=== PATIENT | male | born 1950 | race Caucasian/White ===

== ENCOUNTER 2024-12-19 17:12 | Inpatient (IN) | payer MEDICARE, BC, SELFPAY ==
[2024-12-19] VITALS (22 sets, daily range): BP systolic 81–153; BP diastolic 45–116; BMI 31.4; BMI 31.5
--- NOTE | 2024-12-19 13:46 | ED.GENMED ---
History of Present Illness
General
Chief Complaint: Cardiac Symptoms
Source: patient
Exam Limitations: none
Time Seen by Provider: 12/19/24 13:31
History of Present Illness
History of Present Illness:
See MDM
Past History
Past History
ED Past Medical History: Hypercholesterolemia
ED Past Surgical History: None
Social History
Tobacco: Non-smoker
Alcohol: None
Phy Exam
Physical Exam
Physical Exam:
See MDM
Course
Orders/Labs/Results
Orders:
Orders
12/19/24 13:18
EKG [Electrocardiogram (*1)] Urgent
Reason for Study: Atrial Fibrillation
12/19/24 13:19
EKG- Treatment ONCE
12/19/24 13:43
Diltiazem 125 mg/125 ml Nss [Cardizem] 125 mg in 125 ml .ROUTE .STK-MED
Diltiazem HCl [Cardizem] 10 mg IV NOW STA
Diltiazem HCl [Cardizem] 25 mg .ROUTE .STK-MED ONE
12/19/24 13:48
Complete Blood Count/With Diff Urgent
Comprehensive Metabolic Panel Urgent
Magnesium Urgent
TSH Reflex To Free T4 Urgent
12/19/24 14:30
Metoprolol Xl [Toprol Xl] 25 mg PO NOW STA
12/19/24 15:42
Diltiazem 125 mg/125 ml Nss [Cardizem] 125 mg in 125 ml IV NOW
Initial dose in mg/hr, then titrate:: 5
Titrate to keep:: Heart rate 80-100 bpm
Titrate by mg/hr:: 5 mg/hr
Frequency of titrations (minutes):: 15
Maximum dose in mg/hr:: 15
12/19/24 15:43
Consult Cardiology [CARDIOLOGY CONSULT] Routine
Consulting Provider: Hullmann,Aditya
Was physician already notified: Yes
Abnormal Lab Results
12/19/24
13:48
RBC 4.10 L 10^6/uL
(4.70-6.10)
Hct 38.4 L %
(39.0-52.0)
MCH 32.2 H pg
(27.0-31.0)
Absolute Monos (auto) 0.8 H 10^3/uL
(0.1-0.6)
Chloride 109 H mmol/L
(98-107)
12/19/24 13:48
12/19/24 13:48
Vital Signs
Initial and Last Documented VS:
Initial Vital Signs
Temp Pulse Resp BP Pulse Ox
98.0 F 125 16 139/98 98
12/19/24 13:23 12/19/24 13:23 12/19/24 13:23 12/19/24 13:23 12/19/24 13:23
Last Documented Vital Signs
Temp Pulse Resp BP Pulse Ox
98.0 F 124 17 101/74 98
12/19/24 13:23 12/19/24 14:41 12/19/24 13:47 12/19/24 14:41 12/19/24 13:49
MDM/Problems Addressed
Differential Diagnosis Includes:
Note:
CHIEF COMPLAINT(S)
- Atrial fibrillation with a rapid heart rate.
HISTORY OF PRESENT ILLNESS
The patient is a 74-year-old male with no known history of hypertension or prior diagnosis of atrial fibrillation. He reports being asymptomatic with no chest pain, palpitations, or leg swelling. The patient describes a rapid heartbeat, confirmed to
be around 130 beats per minute, but mentions feeling well and without symptoms. During a routine visit at his PCP, the patient was found to have an irregular heart rhythm.
PHYSICAL EXAM
General: Alert, no acute distress.
Skin: Warm, dry.
Head: Normocephalic, atraumatic
Neck: Appears supple, trachea midline.
Eyes, Ears, Nose, Mouth, and Throat: Oral mucosa moist.
Cardiovascular: No signs of cyanosis. Tachycardic and irregular
Respiratory: Respirations are non-labored.
Abdomen: Non-distended
Musculoskeletal: No deformities. No leg edema
Neurological: No focal neurological deficit observed.
Psychiatric: Cooperative, appropriate mood and affect.
PLAN
1. Initiate blood work to assess for potential underlying causes such as hyperthyroidism or electrolyte imbalance.
2. Administer Cardizem (diltiazem) to slow the heart rate, with plans to evaluate the patients tolerance to potentially continue a pill version for home use.
3. Discuss referral back to the patients advanced practice rn, Dr. Harvey Hernandez, for further outpatient management and to explore options such as cardioversion or ablation as required.
4. Ensure the patient is aware of the need for anticoagulation therapy, as they are not yet on a blood thinner but may require it after further assessment and once a clot is ruled out.
5. Educate the patient on the nature of atrial fibrillation, possible interventions, and the need for a follow-up with the advanced practice rn for more comprehensive management.
DIFFERENTIAL DIAGNOSIS
The Differential Diagnosis includes, in no particular order and is not limited to:
1. Atrial Fibrillation
2. Hyperthyroidism
3. Electrolyte Imbalance
4. Heart Murmur
5. Anemia
6. Infection
7. Valvular Heart Disease
8. Pulmonary Embolism
9. Myocardial Infarction
10. Congestive Heart Failure
SUMMARY OF ENCOUNTER
The patient, a 74-year-old male, arrived at the emergency department with atrial fibrillation and a rapid heart rate persisting around 130 beats per minute. Given the persistent tachycardia, the patient was placed on a diltiazem (Cardizem) drip to
manage the elevated heart rate. Cardiology has been notified and will conduct further evaluation. The goal is to achieve spontaneous chemical cardioversion or proceed with synchronized cardioversion if necessary.
EMERGENCY TREATMENTS ADMINISTERED
Diltiazem drip was administered to manage the patients rapid heart rate.
MANAGEMENT OF THE PATIENTS CARE WAS DISCUSSED WITH
Cardiology has been contacted, and they are aware of the patients ongoing tachycardia. They will evaluate the patient with potential plans for cardioversion.
PLAN
The patient will be monitored with the hope of achieving spontaneous chemical cardioversion. If the heart rate does not stabilize, synchronized cardioversion is planned for the following day.
MEDICAL DECISION MAKING
-Complexity of Data Reviewed: Chronic conditions affecting care include the previously noted atrial fibrillation and spinal infection. Differential diagnosis includes atrial fibrillation, hyperthyroidism, electrolyte imbalance, heart murmur, anemia,
infection, valvular heart disease, pulmonary embolism, myocardial infarction, and congestive heart failure.
-Data:
Category 1
The patient was monitored through continuous heart rate and rhythm observation, which revealed persistent tachycardia in the 130s.
Category 3
Discussion of management with the advanced practice rn regarding potential for chemical or synchronized cardioversion.
DIAGNOSIS
1. Atrial Fibrillation, ICD-10 Code: I48.91
2. Tachycardia, unspecified, ICD-10 Code: R00.0
*Pulse Oximetry
SaO2: 98
Oxygen Mode of Delivery: Room air
Patient hypoxic: no
*Critical Care Note
Total Time (30-74mins, 75-104mins- exclusive of procedures): 33 min
comment:
The high probability of a clinically significant, sudden or life threatening deterioration of the cardiovascular system(s) required my full and direct attention, intervention and personal management. The aggregate critical care time was 33 minutes.
This time is in addition to time spent performing reported procedures but includes the following:
[x] Data Review and interpretation
[x] Patient assessment and monitoring of vital signs
[x] Documentation
[x] Medication orders and management
ED Attending Note
-
Portions of this chart may have been created with voice recognition software.� Occasional wrong word or��sound alike� substitutions may have occurred due to the inherent limitations of voice recognition software.
Discharge Plan
Departure
Patient Disposition: Admit
Date of Disposition: 12/19/24
Time of Disposition: 15:46
Admit to: Telemetry
Presentation/result/management discussed w/ accepting /: Hospitalist
Discharge Problem:
New onset a-fib
Prescriptions:
No Action
zinc 15 mg Tablet
15 mg PO DAILY
garlic 300 mg Capsule
600 mg PO DAILY
milk thistle 175 mg Tablet
175 mg PO DAILY
tamsulosin [Flomax] 0.4 mg Capsule
0.4 mg PO DAILY
niacin 500 mg Tablet
500 mg PO DAILY
coenzyme Q10 [CoQ-10] 100 mg Capsule
100 mg PO DAILY
vitamin D3-vitamin K2 25 mcg (1,000 unit)-90 mcg Tablet,Disintegrating
2 tab PO DAILY
cholecalciferol (vitamin D3) [Vitamin D3] 50 mcg (2,000 unit) Tablet
50 mcg PO DAILY
omega 4-pad-mkt-fish oil [Fish Oil] 1,000 mg (120 mg-180 mg) Capsule
1 cap PO DAILY
vitamin E (dl, acetate) 450 mg (1,000 unit) Capsule
450 mg PO DAILY
red yeast rice 600 mg Tablet
600 mg PO DAILY
potassium citrate 99 mg Capsule
99 mg PO DAILY
turmeric root extract 500 mg Tablet
500 mg PO DAILY
dextroamphetamine-amphetamine [Adderall] 20 mg Tablet
20 mg PO DAILY
berberine-herbal comb no.18 Capsule
1 cap PO DAILY
magnesium chelate, malate 125 mg magnesium Capsule
500 mg PO DAILY
ibuprofen 200 mg tablet
400 mg PO Q6HPRN PRN (Reason: moderate pain) Qty: 1 0RF
vitamin B complex Tablet
1 tab PO DAILY
tadalafil [Cialis] 5 mg Tablet
5 mg PO DAILY
Referrals:
Washington Rosen DO [Family Provider, Internal Medicine]
Interventions
Interventions:
*Risk Screen - Suicide Last Done: 12/19/24 13:23
*General Assessment Last Done: 12/19/24 13:49
*Neglect/Abuse Screening Last Done: 12/19/24 13:23
*ED- Fall Risk Assessment Last Done: 12/19/24 13:49
*ED COVID-19 Vaccine History Last Done: 12/19/24 13:49
ED- Pulmonary Assessment Last Done: 12/19/24 14:16
ED- Cardiac Assessment Last Done: 12/19/24 14:16
Discharge Date and Time
Print Language: MARTINIQUAIS
[2024-12-19] MEDS: CARDIZEM 10 MG IV (13:47)
[2024-12-19 13:57] LABS: Hematocrit 38.4 % (39.0-52.0); Hemoglobin 13.2 g/dL (13.0-18.0); Mean Corp Hgb Conc. 34.4 g/dL (33.0-37.0); Mean Corpuscular Volume 93.7 fL (80.0-94.0); Nucleated Red Blood Cells % 0 % (-); Platelet Count 256 10^3/uL (130-400); Red Cell Dist. Width 13.0 % (11.5-14.5)
[2024-12-19 14:12] LABS: ALT (SGPT) 16 U/L (0-50); AST (SGOT) 17 U/L (17-59); Albumin 3.9 g/dl (3.5-5.0); Alkaline Phosphatase 79 U/L (38-126); Blood Urea Nitrogen 17 mg/dl (9-20); Calcium 9.0 mg/dl (8.4-10.2); Carbon Dioxide 23 mmol/L (22-30); Chloride 109 mmol/L (98-107); Estimated Creatinine Clearance 86 ml/min; Glucose 98 mg/dl (70-99); Magnesium 1.9 mg/dl (1.6-2.3); Potassium 4.4 mmol/L (3.5-5.1); Sodium 137 mmol/L (135-145); Total Protein 6.3 g/dl (6.3-8.2); eGFR > 60.00
[2024-12-19] MEDS: TOPROL XL 25 MG PO (14:41)
--- NOTE | 2024-12-19 16:00 | HPS.HSE ---
Addendum entered and electronically signed by Janelle Mattson MD 12/19/24 18:01:
This is an addendum to H&P written by Sunshine Peterson on 12/19/2024. �Patient seen and examined independently with [employer].
74-year-old male past medical history of CAD, alcohol use disorder, osteoarthritis, hyperlipidemia, BPH, erectile dysfunction, discitis, ADD, smoker, presenting from primary care physician office for tachycardia noted by physician. �He was found to
be in new onset A-fib with heart rate 130. �Has been having fatigue and dyspnea with exertion. �No chest pain or palpitations.
Vital signs normal apart from tachycardia 130s. �EKG shows atrial fibrillation with RVR.
Patient with new onset atrial fibrillation with RVR.
Labs unremarkable apart from TSH of 6.6, free T4 1.03.�
Eliquis started. �Cardizem drip started. �N.p.o. past midnight for EDU/cardioversion if A-fib persist tomorrow as per cardiology. �Holding Adderall.
Subclinical hypothyroidism does not require treatment.�
Original Note:
Family Physician
-
Family Physician: Washington Rosen
Chief Complaint
-
A-fib with RVR from doctor's office
History of Present Illness
74-year-old male complaining of rapid heartbeat A-fib with heart rate 130 bpm during a routine visit at his PCP office. He was given IV Cardizem bolus in ER had slight hypotension.The patient denies fever, chills, chest pain, palpitations, cough,
abdominal pain, nausea and vomiting, diarrhea, urinary symptoms. He did report to cardiology that he felt possibly fatigued for the last several weeks. His noted to cardiology that he had dyspnea on exertion. He denies any recent infections,
URIs, fever. He drinks alcohol on the weekends however last drink was approximately December 07 2-3 beers he used to drink heavily on the weekends vodka and beer 3 years ago before he retired
He has past medical history of alcohol use disorder prior alcohol abuse 3 years ago, active smoker, HLD, BPH, erectile dysfunction, discitis lumbar debridement with long-term antibiotic therapy February 2022, ADD, obstructive circumflex disease by
PET scan 2022, osteoarthritis
Medical History
Past Medical History
Past Medical History: Reports Other
Additional Past Medical History:
Alcohol use disorder prior alcohol abuse 3 years ago
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
osteoarthritis
HLD
BPH
erectile dysfunction
discitis lumbar debridement with long-term antibiotic therapy February 2022
ADD
Active smoker
Past Surgical History: Reports Other
Additional Past Surgical History:
Spinal discitis lumbar debridement 03/06/2022
Tonsillectomy
[place] teeth extraction as teenager
Social History
Tobacco: Smoker (Smoker x 52 years currently half a pack a day max 2 pack a day 3 years ago)
Alcohol: Occasional (Drinks on the weekends 2-3 beers last drink was approximately December 07 occasional vodka)
Drug: None
Personal:
Living: With Family
Employment: Retired
Family History
Family History: Not pertinent
Allergies / Home Medications
Allergies reflects when Allergies were last updated in [facility].
Home Medications with original date entered in [facility]
Allergy/Medication List:
Allergies
Allergy/AdvReac Type Severity Reaction Status Date / Time
ciprofloxacin Allergy tendon Verified 12/19/24 13:25
rupture
Tetanus Vaccines and Toxoid Allergy Rash Verified 12/19/24 13:25
Home Medications
coenzyme Q10 100 mg capsule (CoQ-10) 100 mg PO DAILY 02/02/23
dextroamphetamine-amphetamine 20 mg tablet (Adderall) 20 mg PO DAILY 02/02/23
garlic 300 mg capsule 300 mg PO DAILY 02/02/23
potassium citrate 99 mg capsule 99 mg PO DAILY 02/02/23
red yeast rice 600 mg tablet 600 mg PO DAILY 02/02/23
tamsulosin 0.4 mg capsule (Flomax) 0.4 mg PO HS 02/02/23
turmeric root extract 500 mg tablet 500 mg PO DAILY 02/02/23
vitamin E (dl, acetate) 450 mg (1,000 unit) capsule 450 mg PO DAILY 02/02/23
ibuprofen 200 mg tablet 400 mg (2 x 200 mg) PO Q6HPRN PRN moderate pain #1 tab 02/06/23
aspirin 81 mg tablet,delayed release 162 mg PO DAILYPRN PRN chest pains 12/19/24
cholecalciferol (vit D3) 1,000 unit-vitamin K2 (MK4) 100 mcg tablet 1 tab PO DAILY 12/19/24
tadalafil 5 mg tablet (Cialis) 5 mg PO DAILY 12/19/24
vitamin B complex 1 tab PO DAILY 12/19/24
zinc sulfate 25 mg zinc (110 mg) tablet 25 mg PO DAILY 12/19/24
Review of Systems
-
History Source: Patient and Family ( at bedside)
A 12 point ROS was completed and negative except as noted: Yes
Constitutional: Denies Fever or Fatigue
EENT: Denies Sore Throat or Runny Nose
Respiratory: Denies Cough or Trouble Breathing
Cardiac: Denies Chest Pain, Diaphoresis, Palpitations or Syncope
Abdomen/GI: Denies Abdominal Pain, Nausea, Vomiting, Diarrhea, Constipated, Bloody Stools or Black Stools
: Denies Dysuria, Frequency, Flank Pain, Incontinence or Difficulty Voiding
Musculoskeletal: Denies Joint Pain or Edema
Skin: Denies Itching or Rash
Neurological: Denies Dizzy, Headache or Weakness
Endocrine: Reports No Symptoms
Hematologic/Lymphatic: Reports No Symptoms
Psych: Reports Calm
Physical Exam
Vital Signs
Vital Signs
Temp Pulse Resp BP Pulse Ox
98.0 F 108 17 114/89 96
12/19/24 13:23 12/19/24 15:45 12/19/24 15:30 12/19/24 15:40 12/19/24 15:45
Physical Exam
General: Comfortable and Conversant
HEENT: NormoCephalic, Anicteric, Moist mucous membranes, PERRLA, [place] Conjunctivae and No Ptosis; No Thyromegaly
Respiratory: Clear; No Wheezes, Rales or Rhonchi
Cardiac: S1/S2 and Irregular Rhythm (A-fib 111 bpm on monitor); No Murmur, Rub, Gallop or Peripheral Edema
Breast: Deferred by me
GI: Soft, Non Tender, Non Distended, Normal Bowel Sounds and No Hepatosplenomegaly
Rectal: Deferred by Provider
Genito-urinary: Deferred by me
Musculoskeletal: No Clubbing, No Cyanosis and No Edema
Skin: Warm and Dry; No Rash
Neuro: AO x 3, No Motor Deficits, Nonfocal/grossly intact and Cranial Nerves Intact; No Slurred Speech, Facial Droop, Tremors or Sedated
Psych: Calm
Laboratory Results
-
12/19/24 13:48
12/19/24 13:48
Laboratory Results
Total Bilirubin 0.6 mg/dl (0.2-1.3) 12/19/24 13:48
AST 17 U/L (17-59) 12/19/24 13:48
ALT 16 U/L (0-50) 12/19/24 13:48
Alkaline Phosphatase 79 U/L (38-126) 12/19/24 13:48
Data Reviewed
-
Lab Data: Labs Reviewed by me
Impression/Plan
-
Impression/plan:
Admit to IVU
#A-fib with RVR
HR 130s
IV Cardizem bolus then IV Cardizem drip
-Consult [facility] cardiology
-Check TSH with free T4 reflex
- Check n.p.o. after midnight for EDU/cardioversion in a.m. if remains in A-fib
- Eliquis 5 mg twice daily per cardiology
PET myocardial perfusion imaging: EF 58%, medium size perfusion defect with severe reduction of radioactive isotope intake inferior
lateral segment with moderate reversibility, medium sized area of ischemia in lateral wall extending from the basal segment into the
apical segment with almost complete reversibility, moderate segmental hypokinesis of lateral wall, myocardial flow reserve is
globally favorable 1.9 but segmentally abnormal in left circumflex territory
Echocardiogram 09/01/2022: Normal EF, thickened MV leaflets, mild MAC, mild MR, stage I diastolic dysfunction,
mild with peak/mean gradients 30/16 mmHg with MILE 2.27 cm�, mild TR
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
#History of stage I diastolic dysfunction/ mild MR
#History of alcohol use disorder
#Prior history of alcohol abuse patient reports 3 years ago used to drink heavily on the weekends
Last drink approximately December 07 2-3 beers has occasional alcohol last drink was 3 weeks ago at a friend's republic[employer]
#ADD
Hold Adderall in setting of A-fib with RVR
#Nicotine abuse
53-year smoking history current half a pack a day x 1 month as high as 2 pack a day 3 years ago
Cessation advised
-Nicotine patch 7 mg
#HLD
Check lipid profile
#BPH
Continue Flomax
#Erectile dysfunction
Last used of Cialis was yesterday 12/19/2019 5 AM
Other PMH:
discitis lumbar debridement with long-term antibiotic therapy February 2022,
DVT prophylaxis
Patient to start Eliquis
Full code
--- NOTE | 2024-12-19 16:09 | CON.CAR ---
Addendum entered and electronically signed by Aditya Mack MD 12/19/24 17:56:
I saw and examined the patient.
The Energy Administrator's note was reviewed and I agree with the note.
Comment: Briefly, 74-year-old man past medical history of presumed CAD and mild aortic stenosis who was evaluated by his primary care physician today and found to be tachycardic. ECG in the office showed atrial fibrillation with rapid ventricular
response and he was referred to [place] emergency department for further evaluation. Attempts were made to rate control his atrial fibrillation however he remained tachycardic and therefore was admitted for further management.
Patient tells me that he is unaware of the A-fib as he has not been experiencing any palpitations
He has been fatigued over the last several months however which may be due to AF
Not reporting any symptoms of decompensated heart failure�no dyspnea or peripheral edema
He was started on diltiazem drip and with a rate of 15 mg/hr rates are somewhat better controlled
New to Eliquis 5 mg twice daily and he seems agreeable to take this medication going forward for risk reduction of cardioembolic stroke
Would monitor on telemetry overnight
If he still remains in rapid atrial fibrillation in the morning we will arrange for EDU guided direct-current cardioversion to restore normal sinus rhythm
Discussed with ER physician and patient's at bedside
Original Note:
Consultation
Consultation Request
Date/Time Consultation Performed: 12/19/24
Requesting Provider: Dr. Sevilla
Performing Provider: Colleen Haas PA-C for Dr. Jose Mack
Reason for Consultation: A-fib
Medical History
-
Chief Complaint: New onset A-fib
History of Present Illness:
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 During visit was
noted to have elevated heart rate and underwent EKG which showed rapid atrial arrhythmia and patient was referred to the ER. He reports in retrospect, he has felt fatigued for last several weeks and his has also commented that he is short of
breath particularly with exertion. He denies any chest pain, palpitations, lower extremity edema, abdominal bloating. Denies known history of thyroid disease. Denies new supplements or medication changes, he is on Adderall as an outpatient for
his ADD. In ER he was given 10 mg IV Cardizem push and had drop in blood pressure to 90 systolic, but was asymptomatic. Patient to be admitted. Cardiology has been consulted for evaluation.
PMH:
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
Mild
Hyperlipidemia
ADD, on Adderall
Osteoarthritis
Ongoing tobacco use
Past Medical History
Past Medical History: Other (in HPI)
Social History
Tobacco: Smoker (1 ppd)
Alcohol: Occasional
Personal:
Living: With Family
Employment: Retired
Family History
Family History: Reviewed & Not Pertinent
Allergies / Home Medications
Allergy/AdvReac Type Severity Reaction Status Date / Time
ciprofloxacin Allergy tendon Verified 12/19/24 13:25
rupture
Tetanus Vaccines and Toxoid Allergy Rash Verified 12/19/24 13:25
�Medication �Instructions �Recorded �Confirmed �Type
berberine-herbal comb no.18 capsule 1 cap PO DAILY 02/02/23 12/19/24 History
cholecalciferol (vitamin D3) 50 50 mcg PO DAILY 02/02/23 12/19/24 History
mcg (2,000 unit) tablet (Vitamin
D3)
coenzyme Q10 100 mg capsule 100 mg PO DAILY 02/02/23 12/19/24 History
(CoQ-10)
dextroamphetamine-amphetamine 20 20 mg PO DAILY 02/02/23 12/19/24 History
mg tablet (Adderall)
garlic 300 mg capsule 600 mg PO DAILY 02/02/23 12/19/24 History
magnesium chelate, malate 500 mg PO DAILY 02/02/23 12/19/24 History
milk thistle 175 mg tablet 175 mg PO DAILY 02/02/23 12/19/24 History
niacin 500 mg tablet 500 mg PO DAILY 02/02/23 12/19/24 History
omega 3-lof-cka-fish oil 1,000 mg 1 cap PO DAILY 02/02/23 12/19/24 History
(120 mg-180 mg) capsule (Fish Oil)
potassium citrate 99 mg capsule 99 mg PO DAILY 02/02/23 12/19/24 History
red yeast rice 600 mg tablet 600 mg PO DAILY 02/02/23 12/19/24 History
tamsulosin 0.4 mg capsule (Flomax) 0.4 mg PO DAILY 02/02/23 12/19/24 History
turmeric root extract 500 mg tablet 500 mg PO DAILY 02/02/23 12/19/24 History
vitamin D3 25 mcg (1,000 unit)-vit 2 tab PO DAILY 02/02/23 12/19/24 History
K2 90 mcg disintegrating tablet
vitamin E (dl, acetate) 450 mg 450 mg PO DAILY 02/02/23 12/19/24 History
(1,000 unit) capsule
zinc 15 mg tablet 15 mg PO DAILY 02/02/23 12/19/24 History
ibuprofen 200 mg tablet 400 mg (2 x 200 mg) PO Q6HPRN PRN 02/06/23 12/19/24 Rx
moderate pain #1 tab
tadalafil 5 mg tablet (Cialis) 5 mg PO DAILY 12/19/24 12/19/24 History
vitamin B complex 1 tab PO DAILY 12/19/24 12/19/24 History
Review of Systems
-
History Source: Patient and Family
All other systems: Negative unless noted
Physical Exam
Vital Signs
Temp Pulse Resp BP Pulse Ox
98.0 F 108 17 114/89 96
12/19/24 13:23 12/19/24 15:45 12/19/24 15:30 12/19/24 15:40 09/04/25 15:45
Lab Results
12/19/24 13:48
12/19/24 13:48
Physical Exam
General: No Apparent Distress and Comfortable
HEENT: Normocephalic, Anicteric and Moist Mucous Membranes
Respiratory: Clear and Non Labored Respirations
Cardiac: S1/S2 and Irregular Rhythm
GI: Soft, Non Tender, Non Distended and Normal Bowel Sounds
Musculoskeletal: No Clubbing, No Cyanosis and No Edema
Skin: Warm and Dry
Neuro: AO x 3
Impression / Plan
-
Primary customer service trainer: Dr. Harvey Hernandez
Assessment:
Atrial fibrillation with rapid ventricular response, new diagnosis of unclear duration
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
Mild
Hyperlipidemia
History of PVCs
ADD, on Adderall
Osteoarthritis
Ongoing tobacco use
PET myocardial perfusion imaging: EF 58%, medium size perfusion defect with severe reduction of radioactive isotope intake in inferior lateral segment with moderate reversibility, medium sized area of ischemia in lateral wall extending from the
basal segment into the apical segment with almost complete reversibility, moderate segmental hypokinesis of lateral wall, myocardial flow reserve is globally favorable 1.9 but segmentally abnormal in left circumflex territory
Echocardiogram 09/01/2022: Normal EF, thickened MV leaflets, mild MAC, mild MR, stage I diastolic dysfunction, mild with peak/mean gradients 30/16 mmHg with MILE 2.27 cm�, mild TR
Plan:
- Patient presented with new diagnosis atrial fibrillation with rapid ventricular response discovered at routine office visit with primary care physician this morning and therefore referred to the ER for further evaluation
- Remains in A-fib with elevated heart rates at this time. Did receive one-time IV Cardizem push 10 mg with subsequent hypotension, patient asymptomatic. We discussed starting IV Cardizem gtt at 5 and will monitor response
- N.p.o. after midnight for EDU/cardioversion in a.m. if remains in A-fib. Procedure explained to patient and at bedside in detail and they are agreeable to proceed
- Last echo from 2022 as above with normal EF and mild , consider repeat
- [id number] score of 3 for age, vascular disease. We discussed anticoagulation. Patient has history of 'easy bruisability' on aspirin, however is agreeable to initiate anticoagulation with Eliquis
- TSH mildly abnormal at 6.6, free T4 pending
- Given history of suspected coronary disease based on results of PET scan and now new A-fib, would consider for outpatient ischemic evaluation. EKG without clear ischemic changes noted in rapid AF.
- Check CVE. He previously was not interested in statin therapy or BB therapy at prior OP visits.
- d/w patient and at bedside
Data Reviewed
-
EKG: Tracing Personally Visualized and interpreted
Medical Tests (Nuc Med, Echo etc): Report Reviewed by me
Labs: Labs Reviewed by me
Old Records: Reviewed
[2024-12-19] MEDS: CARDIZEM 125 IV (16:11)
[2024-12-19] MEDS: NICODERM TRANSDERMAL 7 MG TRANSDERM (18:23)
--- NOTE | 2024-12-19 18:24 | PTCARENOTE ---
pt admitted to room 2245 from ED. pt ambulated from stretcher to scale then to bed with standby assist. AAOX3. denies pain. A fib on telemetry heart rate low 100s- cardizem infusing at 15 mg/hr. pt and updated on plan of care.
[2024-12-19] MEDS: ELIQUIS 5 MG PO (19:47)
[2024-12-19] MEDS: FLOMAX 0.4 MG PO (22:21)
--- NOTE | 2024-12-20 00:24 | PTCARENOTE ---
received patient at the change of shift. AAOx3. spouse at the bedside. denies any pain. denies cp/sob/palps. appears dyspneic on exertion. Afib on tele 80-100s. lower rate this evening- 70s-80s. cardizem gtt titrated per order. bp stable. oob
standby. steady on his feet. NPO at midnight for a possible EDU/CV. answered all questions. call gould within reach. makes needs known.
[2024-12-20 03:34] VITALS: BP 126/72
[2024-12-20 03:44] VITALS: BMI 31.5
[2024-12-20 03:50] LABS: Hematocrit 36.7 % (39.0-52.0); Hemoglobin 12.7 g/dL (13.0-18.0); Mean Corp Hgb Conc. 34.6 g/dL (33.0-37.0); Mean Corpuscular Volume 96.3 fL (80.0-94.0); Nucleated Red Blood Cells % 0 % (-); Platelet Count 232 10^3/uL (130-400); Red Cell Dist. Width 13.0 % (11.5-14.5)
[2024-12-20 04:14] LABS: ALT (SGPT) 18 U/L (0-50); AST (SGOT) 18 U/L (17-59); Albumin 3.5 g/dl (3.5-5.0); Alkaline Phosphatase 74 U/L (38-126); Blood Urea Nitrogen 18 mg/dl (9-20); Calcium 9.0 mg/dl (8.4-10.2); Carbon Dioxide 25 mmol/L (22-30); Chloride 109 mmol/L (98-107); Estimated Creatinine Clearance 86 ml/min; Glucose 103 mg/dl (70-99); Potassium 4.5 mmol/L (3.5-5.1); Sodium 137 mmol/L (135-145); Total Protein 6.0 g/dl (6.3-8.2); Very Low Density Lipoprotein 12 mg/dl (0-30); eGFR > 60.00
[2024-12-20] MEDS: CARDIZEM 125 IV (04:18)
[2024-12-20 04:23] LABS: HDL Cholesterol 36 mg/dl; LDL Cholesterol, Calculated 136 mg/dl
--- NOTE | 2024-12-20 07:24 | W.PN.HOSP.TC ---
Today's Communication/Plan
-
See AP
Assessment / Plan
Assessment / Plan
74-year-old man who presented yesterday from his PCP/routine physical where he was found to be in A-fib/RVR.
He had no significant associated symptoms. However endorsed being palpitations and fatigue over the last few weeks.
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
HLD, Osteoarthritis, BPH, Erectile dysfunction, Discitis lumbar debridement with long-term antibiotic therapy February 2022
ADD, Active smoker, Alcohol use disorder prior alcohol abuse 3 years ago
#A-fib with RVR
Has had IV Cardizem bolus then IV Cardizem drip throughout the night
-Consult [facility]ology
-Check TSH with free T4 reflex
-Had EDU done today followed by DC cardioversion with 200J x1 to sinus rhythm
- Dabigatran 150 mg twice daily.
PET myocardial perfusion imaging: EF 58%,
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
#History of stage I diastolic dysfunction/ mild MR
#ADD
Hold Adderall in setting of A-fib with RVR
#Nicotine abuse
-Nicotine patch 7 mg
#HLD
LDL 136- Atorvastatin 20mg daily
#BPH
Continue Flomax
Anticipated Discharge: Today (A/P)
Subjective/Interval History
-
Date of Service: December 20, 2024
Patient seen
Has no current symptoms
Objective Data
-
Labs:
Laboratory Results
12/20/24
03:34
WBC 8.3
Hgb 12.7 L
Hct 36.7 L
Plt Count 232
Sodium 137
Potassium 4.5
Chloride 109 H
Carbon Dioxide 25
BUN 18
Creatinine 0.9
Glucose 103 H
Calcium 9.0
Total Bilirubin 0.4
AST 18
ALT 18
Alkaline Phosphatase 74
Vital Signs:
Vital Signs
Temp Pulse Resp BP Pulse Ox
98.6 F 70 18 126/72 95
12/20/24 03:43 12/20/24 05:15 12/20/24 03:43 12/20/24 03:34 12/20/24 03:43
I&O
12/19/24 12/20/24 12/21/24
06:59 06:59 06:59
Intake Total 480 / 480
Output Total 200 / 200
Balance 280 / 280
Review of Systems
-
History Source: Patient
Constitutional: Reports No Symptoms
EENT: Reports No Symptoms Reported
Respiratory: Reports No Symptoms
Cardiac: Denies Chest Pain, Diaphoresis, Syncope or Orthopnea
Abdomen/GI: Reports No Symptoms
Genitourinary: Reports No Symptoms
Musculoskeletal: Reports No Symptoms
Physical Exam
-
General: Well Developed, Well Nourished and No Apparent Distress
HEENT: Normocephalic
Respiratory: Clear to Auscultation and Wheezes (Faint wheeze heard on the left lower lung zones)
Cardiac: Regular Rhythm and S1/S2; Negative Murmur
GI: Soft and Nontender
[2024-12-20 07:32] VITALS: BP 87/55
[2024-12-20 07:33] VITALS: BP 95/59
[2024-12-20] MEDS: B COMPLEX w/VITAMIN C 1 CAPLET PO (07:58)
[2024-12-20] MEDS: ELIQUIS 5 MG PO (07:58)
--- NOTE | 2024-12-20 07:58 | W.PN.UPDATE ---
Addendum entered and electronically signed by Marcos Rodgers MD 12/20/24 13:10:
Unexpected rapid recovery.
Total time spent on d/c = 34 min. This included today's physical exam, progress note, review of laboratory and diagnostic data, preparation of discharge documents and prescriptions, and discussions about the pt's hospital course and discharge plan
with the patient and other medical recruiter involved in the patient's care.
Original Note:
Update Note
Progress Note Update
I saw and evaluated the patient. I reviewed the resident�s note and agree with findings and plan as documented in the resident�s note.
Gen: NAD, AAOx3.
Eyes: EOMI, PERRLA, no scleral icterus.
Neck: supple.
CV: irreg/irreg, +S1/S2, no m/r/g.
Resp: CTAB, no rales, wheezes, or rhonchi.
Abd: +BS, soft, NT, ND
Skin: No rashes.
Neuro: CN 2-12 intact, non-focal.
Psych: Normal mood and affect.
Afib with RVR:
-cont Cardizem gtt
-cont Eliquis
-cards following
-possible TEECV
Other problems:
h/o alcohol abuse disorder, now drinks socially
Tobacco abuse d/o: counseled on smoking cessation, cont nicotine patch
HLD
BPH
ADD: Holding home Adderall
Obesity due to excess calories
FULL/Eliquis
[2024-12-20] MEDS: NICODERM TRANSDERMAL 7 MG TRANSDERM (07:59)
--- NOTE | 2024-12-20 09:32 | W.PN.CARDCBS ---
Today's Communication / Plan
-
EDU/CV
Impression / Plan
-
Primary photolith operator: Dr. Harvey Hernandez
Assessment:
Atrial fibrillation with rapid ventricular response, new diagnosis of unclear duration
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
Mild
Hyperlipidemia
History of PVCs
ADD, on Adderall
Osteoarthritis
Ongoing tobacco use
PET myocardial perfusion imaging: EF 58%, medium size perfusion defect with severe reduction of radioactive isotope intake in inferior lateral segment with moderate reversibility, medium sized area of ischemia in lateral wall extending from the
basal segment into the apical segment with almost complete reversibility, moderate segmental hypokinesis of lateral wall, myocardial flow reserve is globally favorable 1.9 but segmentally abnormal in left circumflex territory
Echocardiogram 09/01/2022: Normal EF, thickened MV leaflets, mild MAC, mild MR, stage I diastolic dysfunction, mild with peak/mean gradients 30/16 mmHg with MILE 2.27 cm�, mild TR
Plan:
- Patient presented with new diagnosis atrial fibrillation with rapid ventricular response -
- S/p EDU today followed by DC caradioversion with 200J x1 to sinus rhythm
- Stop IV Cardizem
-Start Cardizem CD 120mg daily
- [id number] score of 3 for age, vascular disease. Continue Eliquis 5mg BID
- Outpatient sleep study
-TSH 6.6; free t4 normal- OP follow up advised
-Tobacco cessation; possible pulmonary evaluation as outpatient
-Given history of suspected coronary disease based on results of PET scan and now new A-fib, would consider for outpatient ischemic evaluation. EKG without clear ischemic changes noted in rapid AF.
- LDL 136- start Lipitor 20mg daily
- Probable D/C home later today
Progress Note - Rubber Goods Inspector Tester
Subjective
Date of Service: December 20, 2024
Seen and examined prior to EDU/CV. No new compplaints
Objective
Labs:
12/20/24 03:34
12/20/24 03:34
Labs
Hgb 12.7 g/dL (13.0-18.0) L 12/20/24 03:34
Hct 36.7 % (39.0-52.0) L 12/20/24 03:34
Plt Count 232 10^3/uL (130-400) 12/20/24 03:34
Sodium 137 mmol/L (135-145) 12/20/24 03:34
Potassium 4.5 mmol/L (3.5-5.1) 12/20/24 03:34
BUN 18 mg/dl (9-20) 12/20/24 03:34
Creatinine 0.9 mg/dL (0.7-1.3) 12/20/24 03:34
Glucose 103 mg/dl (70-99) H 12/20/24 03:34
Vital Signs and I&O:
Vital Signs
Temp Pulse Resp BP Pulse Ox
97.8 F 80 14 95/59 94
12/20/24 07:32 12/20/24 08:45 12/20/24 07:32 12/20/24 07:33 12/20/24 07:32
Vital Signs
Temp Pulse Resp BP Pulse Ox
97.8 F 80 14 95/59 94
12/20/24 07:32 12/20/24 08:45 12/20/24 07:32 12/20/24 07:33 12/20/24 07:32
Intake & Output
12/18/24 12/19/24 12/20/24 12/21/24
06:59 06:59 06:59 06:59
Intake Total 480 / 480
Output Total 200 / 200
Balance 280 / 280
Physical Exam
Physical Exam
General: No acute distress, AAOX3
Neck: Negative JVD
Heart: irregularly irregular +s1/s2 2/6 SM
Lungs: bronchovesicular BS with scattered rhnchi
Abd: Positive BS, NT/ND, neg rebound/rigidity/guarding
Ext: No edema
Neuro: nonfocal
[2024-12-20] MEDS: CARDIZEM CD 120 MG PO (11:37)
[2024-12-20 11:48] VITALS: BP 128/80
--- NOTE | 2024-12-20 12:46 | PTCARENOTE ---
patient post EDU cardioversion sinus rhythm on a monitor HR in the 60s. patient denies any pain/discomfort. regular diet order pplaced and noted. patient resting comfortably with the family at bedside
--- NOTE | 2024-12-20 12:47 | CM ---
spoke to pt in room, he is prev indep, lives with his in a 2 story home with 2 steps to enter. he denies any dc planning needs or dme's. plan is for dc to home when medically stable.
[2024-12-20 15:12] VITALS: BP 119/61
--- NOTE | 2024-12-20 15:53 | W.DCSUMMARY ---
Discharge Summary
Discharge Data
Date of Admission: 12/19/24
Date of Discharge: 12/20/24
-
Pending Results: No
Hospital Course
Discharging Physician : Glenny Roblero MD, Vishal Rodríguez MD
Disposition : Home
Primary care physician : David Resdavid
Principal Discharge diagnosis : Atrial fibrillation with rapid ventricular response
Hyperlipidemia
Attention deficit hyperactivity disorder
Chronic Discharge diagnosis :
Nicotine abuse
Benign prostatic hyperplasia
Erectile dysfunction
Osteoarthritis
Hospital Course :
74-year-old man who presented to the [facility] ED after being found to have an elevated heart rate/arrhythmias at his PCP office.
He had no significant associated symptoms of heart failure/decompensation. However endorsed being palpitations and fatigue over the last few weeks.
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
HLD, Osteoarthritis, BPH, Erectile dysfunction, Discitis lumbar debridement with long-term antibiotic therapy February 2022
ADD, Active smoker, Alcohol use disorder prior alcohol abuse 3 years ago
On presentation at the ED, he was in no obvious distress he was tachycardic to 125 bpm, irregularly irregular EKG done showed A-fib with RVR
He was given bolus Cardizem and then Cardizem drip. He was also started on oral dabigatran and atorvastatin.
He was admitted for observation and had EDU/cardioversion done the following day [12/20/2024] due to persistence of arrhythmias.
Following stable clinical condition he was discharged home on his oral medications.
He is to follow-up with his PCP for new diagnosis, subclinical hypothyroidism, and sleep study.
Important imaging findings :
PET myocardial perfusion imaging: (12/20/2024)
EF 58%, medium size perfusion defect with severe reduction of radioactive isotope intake in inferior lateral segment with moderate reversibility, medium sized area of ischemia in lateral wall extending from the basal segment into the apical segment
with almost complete reversibility, moderate segmental hypokinesis of lateral wall, myocardial flow reserve is globally favorable 1.9 but segmentally abnormal in left circumflex territory
Procedure findings :
Transesophageal echocardiography/cardioversion (12/20/2024)
Discharge Plan
-
Patient Disposition: Home (Routine Discharge)
Discharge Diagnosis/Procedures: atrial fibrillation, transesophageal echocardiogram / cardioversion
Hyperlipidemia
Condition: Good
Diet: Low Cholesterol
Activity: As tolerated
Driving Restrictions: As prior to admission
Referrals:
Washington Rosen DO [Family Provider, Internal Medicine] - in less than 1 week
Jody Rivera CRNP [Specified Professional Personl, Cardiology] - 01/21/25 8:00 am
Referral Note: You have a cardiology follow-up appointment at the [place] office with Dr. Hernandez's nurse practitioner, Jody. Please call with questions
Additional Discharge Medication Instructions: stop aspirin and NSAIDs as you are now on pradaxa!
Please follow up with cardiology on 01/21/25
Prescriptions:
New
atorvastatin 20 mg Tablet
20 mg PO QPM Qty: 30 0RF
diltiazem HCl 120 mg Capsule,Extended Release 24hr
120 mg PO DAILY Qty: 30 0RF
dabigatran etexilate 150 mg capsule
150 mg PO BID Qty: 60 11RF
Continued
garlic 300 mg Capsule
300 mg PO DAILY
tamsulosin [Flomax] 0.4 mg Capsule
0.4 mg PO HS
coenzyme Q10 [CoQ-10] 100 mg Capsule
100 mg PO DAILY
vitamin E (dl, acetate) 450 mg (1,000 unit) Capsule
450 mg PO DAILY
red yeast rice 600 mg Tablet
600 mg PO DAILY
potassium citrate 99 mg Capsule
99 mg PO DAILY
turmeric root extract 500 mg Tablet
500 mg PO DAILY
dextroamphetamine-amphetamine [Adderall] 20 mg Tablet
20 mg PO DAILY
vitamin B complex Tablet
1 tab PO DAILY
tadalafil [Cialis] 5 mg Tablet
5 mg PO DAILY
zinc sulfate 25 mg zinc (110 mg) Tablet
25 mg PO DAILY
vitamin D3-vitamin K2 (MK4) 1,000-100 unit-mcg Tablet
1 tab PO DAILY
Discontinued
ibuprofen 200 mg tablet
400 mg PO Q6HPRN PRN (Reason: moderate pain) Qty: 1 0RF
aspirin 81 mg Tablet,Delayed Release (Dr/Ec)
162 mg PO DAILYPRN PRN (Reason: chest pains)
Discharge Orders:
Discharge Patient (As Directed); Ordered 12/20/24
Ordered By: Marcos Rodgers
Care Plan Goals
Care Plan Goals:
Problem: Readiness for enhanced knowledge related to diagnosis and treatment plan
Goal: Understand your diagnosis and treatment plan needs, including medications if applicable.
Instructions: Know your diagnosis, underlying causes and treatment plan options, including medications if applicable. Consult with your health care team to learn about your diagnosis and treatment plan, including medications if applicable.
Discharge Date and Time
Discharge Date/Time: 12/20/24 15:41
Print Language: LITHUANIAN
--- NOTE | 2024-12-20 16:57 | CM ---
pt does not have perscript coverage for brand meds. proced eliquis- $490/mo- Xarelto- $488/mo and pradaxa is non-formulary. he has no deductible, that is his monthly copay chapa. looked up ggeneric pradaxa in [facility] rx at [facility] [address] near
the pts home and monthly cost with coupon is $66/mo, pt agreeable to this cost, coupon given. samantha Haas aware and sent script
--- NOTE | 2024-12-20 17:13 | ITS.CL.CARDI ---
Retail Security Professional - Cardioversion
Cardioversion
Procedure Report:
Date of Procedure: 12/20/24
Procedure: Cardioversion
Indication: Symptomatic atrial fibrillation
Performing Physician: Pricilla Giron DO [facility]
Anticoagulation: New Eliquis
Preprocedure transesophageal echocardiogram without left atrial appendage thrombus
Technique: The patient was brought to the holding area. Signed informed consent was obtained. A time out was called and performed. The patient was anesthetized by the anesthesia service. Transesophageal echocardiogram completed without
complication; no left atrial appendage thrombus. R2 pads were placed anteriorly and posteriorly. A 200 J synchronized biphasic shock restored normal sinus rhythm without significant bradycardia. There were no complications. Post procedure EKG
sinus rhythm with first-degree AV block and PACs, otherwise normal EKG.
Conclusion: Uncomplicated cardioversion from atrial fibrillation to sinus rhythm.
Recommendation: Routine post cardioversion care. Continue long filler cigar roller machine anticoagulation.
== END 2024-12-20 15:41 | disposition home or self-care (01) | DRG 310 ==
LOC: IVU 17:12
PROVIDERS: Clinical Nurse Specialist Family Health; Internal Medicine Cardiovascular Disease; ADMITTING PHYSICIAN Hospitalist; ATTENDING PHYSICIAN Internal Medicine; CONSULT PHYSICIAN Internal Medicine Cardiovascular Disease; EMERGENCY PHYSICIAN Student in an Organized Health Care Education/Training Program; FAMILY PHYSICIAN Internal Medicine
PROC: 5A2204Z Restoration of Cardiac Rhythm, Single (ICD-10-PCS; 2024-12-20)
PROC: B24BZZ4 Ultrasonography of Heart with Aorta, Transesophageal (ICD-10-PCS; 2024-12-20)
DX: I48.91 Unspecified atrial fibrillation (principal); E78.00 Pure hypercholesterolemia, unspecified; F90.9 Attention-deficit hyperactivity disorder, unspecified type; N52.9 Male erectile dysfunction, unspecified; M19.90 Unspecified osteoarthritis, unspecified site; E03.8 Other specified hypothyroidism; N40.0 Benign prostatic hyperplasia without lower urinary tract symptoms; F17.210 Nicotine dependence, cigarettes, uncomplicated; I25.10 Atherosclerotic heart disease of native coronary artery without angina pectoris; Z79.899 Other long term (current) drug therapy; F10.11 Alcohol abuse, in remission
CPT/HCPCS: 80053; 80061; 83735; 84439; 84443; 85025; 92960; 93005; 93312; 93320; 93325; 96365; 96366; 99291

== ENCOUNTER → 2025-02-11 11:22 | Outpatient (REF) | payer MEDICARE, BC, SELFPAY | LOC: DHSLP 11:22 | PROVIDERS: ATTENDING PHYSICIAN Nurse Practitioner; FAMILY PHYSICIAN Internal Medicine | DX: G47.33 Obstructive sleep apnea (adult) (pediatric) (principal) | CPT/HCPCS: 95800 ==

== ENCOUNTER 2025-03-18 06:06 | Day surgery (SDC) | payer MEDICARE, BC, SELFPAY ==
[2025-03-18] VITALS (15 sets, daily range): BP systolic 112–149; BP diastolic 68–105; BMI 32.1
[2025-03-18 07:24] LABS: Hematocrit 42.2 % (39.0-52.0); Hemoglobin 14.4 g/dL (13.0-18.0); Mean Corp Hgb Conc. 34.1 g/dL (33.0-37.0); Mean Corpuscular Volume 93.8 fL (80.0-94.0); Platelet Count 278 10^3/uL (130-400); Red Cell Dist. Width 13.2 % (11.5-14.5)
[2025-03-18] MEDS: LOW STRENGTH ASPIRIN 81 MG PO (07:36)
[2025-03-18 08:31] LABS: Blood Urea Nitrogen 15 mg/dl (9-20); Calcium 8.9 mg/dl (8.4-10.2); Carbon Dioxide 29 mmol/L (22-30); Chloride 106 mmol/L (98-107); Estimated Creatinine Clearance 75 ml/min; Glucose 101 mg/dl (70-99); Potassium 4.2 mmol/L (3.5-5.1); Sodium 137 mmol/L (135-145); eGFR > 60.00
[2025-03-18 08:43] LABS: ACT-LR - POC 205 Seconds (116-155)
[2025-03-18 08:54] LABS: ACT-LR - POC 215 Seconds (116-155)
--- NOTE | 2025-03-18 09:04 | ITS.CL.CATH ---
Wash Crew Person - Catheterization
Cardiac Catheterization
Procedure Report:
LEFT HEART CATHETERIZATION
Date of Procedure: March 18, 2025
Referring: Dr. Harvey Hernandez
PROCEDURES:
1. Left heart catheterization with coronary and single-plane left ventriculography
2. Hemodynamic assessment of the LAD with a Esperance Omni wire. The iFR in the LAD serially measuring below the ischemic threshold at 0.75, 0.80, 0.79, 0.79
INDICATION: Exertional intolerance. History of paroxysmal atrial fibrillation post cardioversion in December 2024. He is not on oral anticoagulation; he refuses.
ACCESS: Right radial artery, 6 Upper Sorbian sheath
HEMODYNAMICS : (mmHg)
AO (s/d) : 144/75
LV (s/d) : 163/13
LVEDP : 29
CORONARY FINDINGS
DOMINANCE: Left
LEFT MAIN: Mild ostial narrowing
LEFT ANTERIOR DESCENDING: The LAD arises normally from the left main and runs in the anterior interventricular groove. The LAD is a small to medium caliber vessel with a long 50% stenosis in its midportion spanning the origin of the first diagonal
branch which has a 70% ostial stenosis. The mid LAD has diffuse luminal irregularities to 40-50% but no focal obstructive stenosis. The iFR in the LAD measured well below the ischemic threshold at 0.75, 0.80, 0.79, and 0.79 with gradual step up in
the mid LAD and more significant step up near the origin of the diagonal branch.
CIRCUMFLEX: The circumflex is a moderate caliber dominant vessel with a 60% proximal stenosis. OM1 is very small. OM 2 is a moderate caliber vessel with ENMA II flow into the distal vessel associated with moderate ostial and mid atherosclerotic
disease. The circumflex continues in the AV groove supplying a moderate-sized posterolateral branch and small PDA. There is a long 60-70% calcified distal circumflex stenosis involving the posterolateral branch and proximal PDA
RIGHT CORONARY ARTERY: Moderate caliber nondominant vessel
VENTRICULOGRAPHY: Left ventriculography is performed in an CURIEL projection. The digital single-plane left ventricular ejection fraction is estimated at 50%
HEMODYNAMIC ASSESSMENT OF THE LAD WITH A VOLCANO OMNI WIRE: The origin of the left main was cannulated with a 6 Fr JL 4 guide catheter. The Omni wire was normalized to the guide catheter pressure while the guide was disengaged from the left main
ostium. Intravenous heparin was administered and the ACT was followed during the procedure. Two hundred micrograms of intracoronary nitroglycerin was given through the guide catheter. The Esperance Omni wire was advanced to the LAD and advanced
distally with the iFR serially measuring below the ischemic threshold at 0.75, 0.80, 0.79, 0.79. The Omni wire was then pulled back to the guide catheter where the Pd/Pa measured 0.98 confirming no baseline drift in pressure readings. The most
significant stepup in the LAD was noted near the diagonal origin
SEDATION: 55 minutes of procedural sedation was utilized. An independent medical safety director was present to assist with and help manage the patient's level of consciousness and physiologic status.
RADIATION SUMMARY: Fluoro Time (min): 11.4, Dose (mGy): 791, DAP (Gy.cm2) : 53.3
Closure Device: TR band
CONCLUSIONS
1. Multivessel coronary artery disease.
2. Low normal LVEF
RECOMMENDATIONS
1. Refer for CT surgical evaluation for possible coronary artery bypass grafting and ligation of left atrial appendage: Target vessels for revascularization would likely include the LAD, diagonal, OM2, PDA/PLB
Copy to: Dr. Harvey Hernandez
== END 2025-03-18 12:40 | disposition home or self-care (01) ==
LOC: CATH 06:06
PROVIDERS: ATTENDING PHYSICIAN Internal Medicine Interventional Cardiology; FAMILY PHYSICIAN Internal Medicine; OTHER PHYSICIAN Internal Medicine Cardiovascular Disease
DX: I25.10 Atherosclerotic heart disease of native coronary artery without angina pectoris (principal); Z79.899 Other long term (current) drug therapy; F90.9 Attention-deficit hyperactivity disorder, unspecified type; Z72.0 Tobacco use
CPT/HCPCS: 93799; 99152; 99153; 80048; 85027; 85347; 93458; C1769; Q9967

== ENCOUNTER → 2025-03-27 13:25 | Outpatient (REF) | payer MEDICARE, BC, OTHER, SELFPAY | LOC: HWRAD 13:25 | PROVIDERS: ATTENDING PHYSICIAN Student in an Organized Health Care Education/Training Program; FAMILY PHYSICIAN Internal Medicine | DX: I25.10 Atherosclerotic heart disease of native coronary artery without angina pectoris (principal) | CPT/HCPCS: 71250 ==

== ENCOUNTER 2025-04-01 05:16 | Inpatient (IN) | payer MEDICARE, BC, OTHER, SELFPAY ==
[2025-03-24 08:33] VITALS: BMI 33.2
[2025-03-24 09:14] LABS: Urine Character Clear (Clear)
[2025-03-24 09:17] LABS: Hematocrit 41.5 % (39.0-52.0); Hemoglobin 14.4 g/dL (13.0-18.0); Mean Corp Hgb Conc. 34.7 g/dL (33.0-37.0); Mean Corpuscular Volume 94.3 fL (80.0-94.0); Nucleated Red Blood Cells % 0 % (-); Platelet Count 279 10^3/uL (130-400); Red Cell Dist. Width 13.0 % (11.5-14.5)
[2025-03-24 09:26] LABS: INR 1.08; PT 14.1 Sec (11.4-14.6)
[2025-03-24 09:27] LABS: APTT 31.3 Sec (23.4-35.0)
[2025-03-24 09:58] LABS: ALT (SGPT) 16 U/L (0-50); AST (SGOT) 17 U/L (17-59); Albumin 3.9 g/dl (3.5-5.0); Alkaline Phosphatase 96 U/L (38-126); Blood Urea Nitrogen 17 mg/dl (9-20); Calcium 9.2 mg/dl (8.4-10.2); Carbon Dioxide 26 mmol/L (22-30); Chloride 105 mmol/L (98-107); Estimated Creatinine Clearance 81 ml/min; Glucose 97 mg/dl (70-99); Potassium 4.3 mmol/L (3.5-5.1); Sodium 138 mmol/L (135-145); Total Protein 6.5 g/dl (6.3-8.2); eGFR > 60.00
[2025-03-24 10:03] LABS: Glycohemoglobin (HgbA1c) 5.7 % (4.0-5.9)
--- NOTE | 2025-03-24 10:25 | CM ---
spoke to pt in PAT's. he is prev indep, lives with his in a 2 story home with 2 steps to enter. we discussed sternal and driving restrictions. he has the CT Surgery book, soap and instructions. he is agreeable to a f/u visit from the ct
transitional care nurse after dc. plan is for CABG 04/01, cm role explained and all questions answered.
[2025-04-01] VITALS (22 sets, daily range): BP systolic 83–136; BP diastolic 55–83; BMI 31.1
[2025-04-01] MEDS: MAGNESIUM OXIDE 400 MG PO (05:57)
[2025-04-01] MEDS: PROTONIX 40 MG PO (05:57)
[2025-04-01] MEDS: BACTROBAN 2% OINTMENT 1 APPLIC NASAL ×2 (05:57→20:32)
[2025-04-01] MEDS: LOPRESSOR 12.5 MG PO (06:15)
--- NOTE | 2025-04-01 06:25 | PTCARENOTE ---
Pt arrived to unit at 0500. Clipped and prepped per protocol, CHG bath w/wipes given. Admission questions completed, home meds confirmed. ABO sent. Ancef pulled and sent to the CVOR. CVOR at bedside at 0630, report given.
--- NOTE | 2025-04-01 06:45 | W.CVOR.SURPR ---
CVOR Surgeon Immed Pre Op
-
I have examined this patient prior to performance of the scheduled procedure.
The patient's condition is unchanged from the time of the dictated/written History and
Physical and the patient is able to undergo the scheduled procedure.
[2025-04-01 07:27] LABS: Urine Character Clear (Clear)
[2025-04-01 07:46] LABS: ACT+ - POC 140 Seconds (82-134)
[2025-04-01 09:51] LABS: ACT+ - POC 514 Seconds (82-134)
[2025-04-01 10:23] LABS: B.E. - POC 0.4 mmol/L; Glucose - POC 115 mg/dl (70-99); HCO3 - POC 26 mmol/L (21-28); Hematocrit - POC 35 % PCV (42-52); Hemodilution- POC No; Hemoglobin Calculated - POC 12.0; Ionized Calcium - POC 1.12 mmol/L (1.15-1.33); Lactate - POC 0.57 mmol/L (0.36-0.75); O2 Saturation %Calculated-POC 98.9 % (94-98); PCO2 - POC 43 mmHg (35-48); PO2 - POC 132 mmHg (83-108); Potassium - POC 3.9 mmol/L (3.5-5.1); Sodium - POC 141 mmol/L (136-145); Specimen Type - POC Arterial; pH - POC 7.39 (7.35-7.45)
--- NOTE | 2025-04-01 10:27 | CM ---
pt in OR today, cm to follow.
[2025-04-01 10:32] LABS: ACT+ - POC 479 Seconds (82-134)
[2025-04-01 11:03] LABS: B.E. - POC 4.1 mmol/L; Glucose - POC 159 mg/dl (70-99); HCO3 - POC 29 mmol/L (21-28); Hematocrit - POC 28 % PCV (42-52); Hemodilution- POC Yes; Hemoglobin Calculated - POC 9.5; Ionized Calcium - POC 1.12 mmol/L (1.15-1.33); Lactate - POC 0.70 mmol/L (0.36-0.75); O2 Saturation %Calculated-POC 100.0 % (94-98); PCO2 - POC 46 mmHg (35-48); PO2 - POC 393 mmHg (83-108); Potassium - POC 4.3 mmol/L (3.5-5.1); Sodium - POC 140 mmol/L (136-145); Specimen Type - POC Arterial; pH - POC 7.42 (7.35-7.45)
[2025-04-01 11:12] LABS: ACT+ - POC 440 Seconds (82-134)
[2025-04-01 11:45] LABS: B.E. - POC 3.0 mmol/L; Glucose - POC 195 mg/dl (70-99); HCO3 - POC 27 mmol/L (21-28); Hematocrit - POC 29 % PCV (42-52); Hemodilution- POC Yes; Hemoglobin Calculated - POC 9.8; Ionized Calcium - POC 1.05 mmol/L (1.15-1.33); Lactate - POC 0.94 mmol/L (0.36-0.75); O2 Saturation %Calculated-POC 100.0 % (94-98); PCO2 - POC 39 mmHg (35-48); PO2 - POC 409 mmHg (83-108); Potassium - POC 5.4 mmol/L (3.5-5.1); Sodium - POC 138 mmol/L (136-145); Specimen Type - POC Arterial; pH - POC 7.46 (7.35-7.45)
[2025-04-01 11:54] LABS: ACT+ - POC 452 Seconds (82-134)
[2025-04-01 12:17] LABS: B.E. - POC 1.9 mmol/L; Glucose - POC 212 mg/dl (70-99); HCO3 - POC 26 mmol/L (21-28); Hematocrit - POC 29 % PCV (42-52); Hemodilution- POC Yes; Hemoglobin Calculated - POC 10.0; Ionized Calcium - POC 1.10 mmol/L (1.15-1.33); Lactate - POC 1.13 mmol/L (0.36-0.75); O2 Saturation %Calculated-POC 99.9 % (94-98); PCO2 - POC 35 mmHg (35-48); PO2 - POC 273 mmHg (83-108); Potassium - POC 5.0 mmol/L (3.5-5.1); Sodium - POC 138 mmol/L (136-145); Specimen Type - POC Arterial; pH - POC 7.47 (7.35-7.45)
[2025-04-01 12:47] LABS: ACT+ - POC 109 Seconds (82-134)
[2025-04-01 13:34] LABS: B.E. - POC -1.5 mmol/L; Glucose - POC 143 mg/dl (70-99); HCO3 - POC 24 mmol/L (21-28); Hematocrit - POC 29 % PCV (42-52); Hemodilution- POC Yes; Hemoglobin Calculated - POC 9.9; Ionized Calcium - POC 1.26 mmol/L (1.15-1.33); Lactate - POC 2.63 mmol/L (0.36-0.75); O2 Saturation %Calculated-POC 99.8 % (94-98); PCO2 - POC 42 mmHg (35-48); PO2 - POC 237 mmHg (83-108); Potassium - POC 3.8 mmol/L (3.5-5.1); Sodium - POC 142 mmol/L (136-145); Specimen Type - POC Arterial; pH - POC 7.37 (7.35-7.45)
[2025-04-01 14:09] LABS: Glucose - Point of Care 111 mg/dl (70-99)
[2025-04-01 14:19] LABS: B.E. -1.8 mmol/L; HCO3 24.7 mmol/L (21-28); O2 Saturation % 99.1 % (94-98); PCO2 49 mmHg (35-48); PO2 107 mmHg (83-108); Potassium 3.9 mMOL/L (3.5-5.1); Sodium 137 mMOL/L (136-145)
[2025-04-01 14:22] LABS: Hematocrit 29.7 % (39.0-52.0); Hemoglobin 10.3 g/dL (13.0-18.0); Platelet Count 186 10^3/uL (130-400)
[2025-04-01 14:35] LABS: Blood Urea Nitrogen 15 mg/dl (9-20); Estimated Creatinine Clearance 92 ml/min; Glucose 103 mg/dl (70-99); Magnesium 2.6 mg/dl (1.6-2.3)
--- NOTE | 2025-04-01 14:35 | W.PN.UPDATE ---
Update Note
Progress Note Update
75�year old male was electively admitted for CABG, MAZE, left atrial clip due to two�vessel�coronary diseaseand PAF
IV fluids:
Crystalloid:�
U.O.:�
Blood:�
Wires:� V wire
Drips: Levo @ 6, Precedex, Insulin
�
NEURO: sedated, pupils +2mm B/L
RESP: #8OT @24cm> 500/60%/14/5. Lungs clear B/L. 2 mediastinal (5cc on arrival) and R/L pleural (20cc on arrival) chest tubes to -20cm suction. Sanguineous drainage
CV: RRR +S1, S2, no S3, no�rub, no murmur. Dermabond to median sternotomy. RIJ w/Slik, CVP 6
ABD: round, soft, no BS
EXT: no edema, +2/4 DP pulses B/L, no femoral bruit, RLE LEVI wrap intact; left radial A-line intact
: Dean with clear yellow urine
�
A/P: POD #0 s/p CABG x 4 FRAZIER-LAD, SVG-Diag, SVG-OM & LPL, encompass MAZE, ELAA # 40mm clip
EDU: EF�60-65%
- wean and extubate
- insulin x 24h
# CAD
- will require ASA, Plavix, statin, beta ze
# PAF not on AC
- currently SR
�
# acute surgical blood loss anemia-expected
- trend CBC
�
�# Class I obesity (BMI 31)
�- chol lowering diet
# Tobacco abuse (quit Mar 2025)
- offer Nicotine patch
# BPH
- resume Flomax/Cialis as BP permits
[2025-04-01] MEDS: ANCEF 10 IV ×2 (14:37→14:38)
[2025-04-01] MEDS: NEURONTIN PO ×2 (14:38→15:15)
[2025-04-01] MEDS: NSS 500 IV (14:38)
[2025-04-01] MEDS: TYLENOL PO (14:38)
[2025-04-01 14:41] LABS: INR 1.45; PT 17.7 Sec (11.4-14.6)
[2025-04-01 14:42] LABS: APTT 30.3 Sec (23.4-35.0)
--- NOTE | 2025-04-01 14:50 | PTCARENOTE ---
pt received from CVOR @~1400, sedated on Precedex gtt, RASS -5. core temp 97.3, bear hugger applied. SR w/ 1st degree AVB on the monitor, HR 70s. V wires in place, VVI 40/10. CVP ~6. SBP 90-110, Levophed gtt running as ordered. palpable radial
pulses, weakly palpable DPs. pt mechanically ventilated, ETT #8.0, 24cm@lip. SIMV 14, TV 500, PEEP 5, FIO2 40%. POX 97-100%. lungs clear anteriorly. CTx3, no air leak or crepitus noted. pt abdomen round, s/n, hypoactive BS. Dean in place, slight
hematuria otherwise clear yellow urine, FRONT END LOADER OPERATOR aware. 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 chest tube site c/d/i. R groin puncture. RLE LEVI bandage in place. RIJ cordis/slick in place. R radial Helen flushed, zeroed, and calibrated. PIV x2. insulin gtt
running per protocol. lab work drawn, RR increased on vent per FRONT END LOADER OPERATOR based on ABG. EKG completed. CXR completed. dora repleted. see worklist for VS, I&O, and assessment.
[2025-04-01] MEDS: CALCIUM GLUCONATE 100 IV ×2 (15:03→20:39)
[2025-04-01 15:04] LABS: Glucose - Point of Care 123 mg/dl (70-99)
[2025-04-01] MEDS: PACERONE PO (15:15)
[2025-04-01] MEDS: KCL 50 IV (15:59)
[2025-04-01 16:04] LABS: Glucose - Point of Care 102 mg/dl (70-99)
--- NOTE | 2025-04-01 16:40 | CON.INTV ---
Consultation
Consultation Request
Date/Time Consultation Requested: 04/01/2025
Date/Time Consultation Performed: 04/01/2025
Medical History
-
Chief Complaint: Exertional dyspnea
History of Present Illness:
Patient is a 75-year-old gentleman who was diagnosed with atrial fibrillation requiring brief hospitalization in 12/2024. Patient since has been having worsening exertional dyspnea and fatigue. Longstanding history of smoking. His workup included
recent cardiac catheterization which showed multivessel coronary artery disease and patient was recommended to follow-up with the cardiothoracic surgery service. Patient was recommended to have coronary artery bypass graft, maze procedure and left
atrial appendage exclusion. He was electively admitted to hospital on 04/01 for above procedure and post surgery was admitted to CVICU. Blood Donor Recruiter Supervisor consultation was requested for further input.
Past Medical History
Alcohol use disorder prior alcohol abuse 3 years ago
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
osteoarthritis
HLD
BPH
erectile dysfunction
discitis lumbar debridement with long-term antibiotic therapy February 2022
ADD
Past Surgical History: Reports Other
Additional Past Surgical History:
Spinal discitis lumbar debridement 03/06/2022
Tonsillectomy
[place] teeth extraction as teenager
Social History
Tobacco: Smoker (Smoker x 52 years currently half a pack a day max 2 pack a day 3 years ago)
Alcohol: Occasional (Drinks on the weekends 2-3 beers last drink was approximately December 07 occasional vodka)
Drug: None
Personal:
Living: With Family
Employment: Retired
Family History
Family History: Not pertinent
Allergies / Home Medications
Allergies
Allergy/AdvReac Type Severity Reaction Status Date / Time
ciprofloxacin Allergy tendon Verified 03/20/25 16:22
rupture
Tetanus Vaccines and Toxoid Allergy Rash Verified 03/20/25 16:22
Home Medications
�Medication �Instructions �Recorded �Confirmed �Last Taken �Type
coenzyme Q10 100 mg capsule 100 mg PO DAILY Supplement 10/19/23 12/16/25 12/10/25 08:00 History
(CoQ-10)
garlic 300 mg capsule 300 mg PO DAILY Supplement 02/02/23 04/01/25 03/26/25 08:00 History
potassium citrate 99 mg capsule 99 mg PO DAILY Supplement 02/02/23 04/01/25 03/26/25 08:00 History
tamsulosin 0.4 mg capsule (Flomax) 0.4 mg PO HS Urinary Issue 02/02/23 04/01/25 03/31/25 23:00 History
vitamin E (dl, acetate) 450 mg 450 mg PO DAILY Supplement 02/02/23 04/01/25 03/26/25 08:00 History
(1,000 unit) capsule
tadalafil 5 mg tablet (Cialis) 5 mg PO DAILY Urinary Issue 12/19/24 04/01/25 03/30/25 History
2200
vitamin B complex 1 tab PO DAILY Supplement 12/19/24 04/01/25 03/26/25 08:00 History
zinc sulfate 25 mg zinc (110 mg) 50 mg PO DAILY Supplement 12/19/24 04/01/25 03/26/25 08:00 History
tablet
aspirin 81 mg tablet 81 mg PO DAILY Blood Clot 03/18/25 04/01/25 03/31/25 18:30 History
Prevention/Tx 81
Nicotine Transdermal 21 mg topical DAILY Nicotine 03/20/25 04/01/25 03/30/25 08:00 History
replacement tx
atorvastatin 20 mg tablet 20 mg PO QPM High Cholesterol 03/20/25 04/01/25 03/30/25 History
2300
cholecalciferol (vitamin D3) 50 100 mcg PO DAILY Supplement 03/20/25 04/01/25 03/26/25 08:00 History
mcg (2,000 unit) tablet (Vitamin
D3)
vitamin K2 180 mcg capsule 180 mcg PO DAILY Supplement 03/20/25 04/01/25 03/26/25 08:00 History
Review of Systems
-
Unable to Obtain full review of systems at this time due to: Patient Intubation
Vitals / Labs / Diagnostic Testing
Vital Signs
Temp Pulse Resp BP Pulse Ox
98.1 F 75 18 105/70 99
04/01/25 16:00 04/01/25 16:00 04/01/25 16:00 04/01/25 16:00 04/01/25 16:00
Lab Data
04/01/25 14:07
04/01/25 14:07
Laboratory Results
04/01/25
14:07
PT 17.7 H
INR 1.45
APTT 30.3
pH 7.31 L
pCO2 49 H
pO2 107
HCO3 24.7
O2 Delivery Level
Diagnostic Testing:
Physical Exam
-
HEENT: Normocephalic
Cardiovascular: S1/S2
Respiratory: Clear
GI: Soft
Neurology: Awake and Other (Sedated)
Skin: Warm
General: Comfortable
Assessment
-
75-year-old gentleman with multivessel coronary artery disease, s/p coronary artery bypass graft, maze procedure and left atrial appendage exclusion, POD # 0
Titrate off pressors per protocol, currently Levophed infusing at 3, MAP of 72.
ECHO reviewed with normal LVEF
Management of chest tubes per primary service, no airleak noted
Intubated/sedated, initiate SAT when able. Precedex infusing at 0.4
Pain control
RASS goal of 0 to -1
Intubated for procedure, SBT trial when patient able to spontaneously breath
Current vent settings: SIMV, 500/18/40%/5, with pressure support of 5
AB.31/49/107
CXR with no obvious opacities/infiltrates
Extubate per protocol
Maintain supplement oxygen as needed
No prior known history of pulmonary disease
Can add nebulizers if needed
Aspiration precautions
Encouraged incentive spirometry, OOB/ambulation/early mobility
Advance diet as tolerated following extubation
GI prophylaxis: Protonix
Monitor critical I/O's. Urine slightly blood-tinged, progressively clearing.
Dean/chest tube output
Hb/platelets postoperatively, mild drift
Trend CBC for now
Can transfuse if indicated for Hb <7, plt <50 in surgical patients
DVT prophylaxis including SCDs
Insulin protocol initiated and ongoing
Transition to SQ/off as indicated per team
Other medical diagnoses:
- Paroxysmal atrial fibrillation
- History of smoking
- BPH
- History of smoking, will get additional details once patient is extubated
Critical Care time 61 mins -- The patient is admitted for acute critical illness for the treatment of vital organ failure and/or prevention of further life-threatening conditions. Total care includes time spent in review of history, physical exam,
medications, hemodynamic/ventilator parameters, laboratory data, imaging and discussion with house staff, pharmacy, respiratory therapy, decorating inspector, and nursing
Data:
EDU 03/2025: Normal size left ventricle with concentric hypertrophy. No regional wall motion abnormalities with LVEF 60-65%.
Normal right ventricular size and function. Dilated tricuspid valve with trace to mild regurgitation.
Mildly dilated right atrium. Normal left atrial appendage.
Functionally normal aortic valve. Mild mitral regurgitation.
Normal size aorta with grade III atheromatous disease of the lesser curvature of the aortic arch.
C 03/2025: 1. Multivessel coronary artery disease.
2. Low normal LVEF
CT Chest 03/2025: No acute CT findings in the chest
Moderate coronary arterial calcifications
Diffuse idiopathic skeletal hyperostosis of mid to lower thoracic spine
--- NOTE | 2025-04-01 16:45 | PTCARENOTE ---
pt nods appropriately, BLAIR, follows commands. pt placed on CPAP 5/5 40% @~1640. POX 100%. oral hygiene provided.
[2025-04-01 17:14] LABS: B.E. - POC 1.1 mmol/L; Blood Urea Nitrogen - POC 15 mg/dl (3-120); Chloride - POC 107 mmol/L (96-111); Creatinine - POC 0.98 mg/dl (0.3-1.0); Glucose - POC 133 mg/dl (70-99); HCO3 - POC 26 mmol/L (21-28); Hematocrit - POC 31 % PCV (42-52); Hemodilution- POC No; Hemoglobin Calculated - POC 10.6; Ionized Calcium - POC 1.30 mmol/L (1.15-1.33); Lactate - POC 1.28 mmol/L (0.36-0.75); O2 Saturation %Calculated-POC 98.8 % (94-98); PCO2 - POC 42 mmHg (35-48); PO2 - POC 123 mmHg (83-108); Potassium - POC 4.9 mmol/L (3.5-5.1); Sodium - POC 135 mmol/L (136-145); Specimen Type - POC Arterial; pH - POC 7.40 (7.35-7.45)
[2025-04-01 17:19] LABS: Glucose - Point of Care 133 mg/dl (70-99)
--- NOTE | 2025-04-01 17:19 | W.PN.CT.SURG ---
CT Surgery Operative Note
-
CARDIAC SURGERY OPERATIVE REPORT
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
Postoperative Diagnosis: Same
Procedure(s) Performed:
1. Standard Sternotomy with Aortic and Right Atrial Cannulation
2. Internal Mammary Artery Harvesting, Left
3. Coronary artery bypass grafting x 4 (In situ FRAZIER to LAD, Ao to RSVG to diagonal, Ao to RSVG to L PLB and OM 2 in sequence)
4. Endarterectomy of second obtuse marginal coronary artery
5. Endoscopic vein harvesting of right saphenous vein
5. Transesophageal echocardiography
6. Placement of Temporary Ventricular Pacing Wires
7. Left atrial appendage ligation with 40 mm AtriClip
8. Modified left atrial maze procedure with AtriCure Encompass device
Date of Surgery: 04/01/2025
Comorbidities:
1. Paroxysmal A-fib
2. Hypertension
3. Hyperlipidemia
4. Tobacco use
Attending Surgeon: Shavonne Quinteros MD, MPH
Co-surgeon: Frankie Arredondo MD, MS (assisted in the endarterectomy of second obtuse marginal coronary artery)
Assistants: Frankie Grullon PA-C and CANDACE Mckinnon (present and necessary to yard assistant, endoscopic vein harvest, retraction, suction, exposure, suture management, and wound closure under my direction)
Anesthesiology: Jeremy Sharp MD and Chandler Wills CRNA
Scrub and Circulating RNs: Tawanna Pittman, RN, Marshall Bearden RN
Park Services Specialist: Huong Hicks CCP
Anesthesia: GETA
EBL: per perfusion records
Products: None
CPB Time: 136 minutes
Aortic Cross Clamp Time: 102 minutes
Indication(s) for Procedures: Mr. Watson is a 75-year-old man with hypertension, hyperlipidemia and new onset paroxysmal A-fib s/p cardioversion who presented for evaluation of escalating angina with left heart cath showing multivessel coronary artery
disease.
Conduit(s) Quality:
FRAZIER -great quality with excellent flow
RSVG -slightly thick, however overall was of great quality without significant sclerosis or varicosities
Target(s) Quality:
L PLB -this was moderate-sized vessel with a good lumen and free of disease in the area of arteriotomy. Flow on bypass indicates 30 cc/min at 80 mmHg, after sequential flow probe indicates 50 cc/min with PI 4.3
OM2 -this was clearly the largest of the branches on the lateral wall, when arteriotomy was performed we were clearly in a large plaque. We did have to perform a rather large endarterectomy to remove the plaque. There was easy passage of 2 mm
probe proximally and 1 mm probe distally. Flow on bypass indicates 30 cc/min at 80 mmHg, after sequential the flow probe indicates 50 cc/min with PI 4.3.
Diagonal -this is a large vessel with a very good lumen, free of disease. Flow while on bypass was 20 cc/min at 80 mmHg. Flow probe indicates 25.5 cc/min with PI 3.4
LAD -this was a moderate-sized vessel with excellent target and wide open lumen free of disease. Flow probe indicates 30 cc/min with PI 2.5
Findings: Intraoperative EDU was performed indicating normal LV with moderate hypertrophy and no RWMA, EF 60 to 65%. There was normal RV function and mild MR with trace to mild TR. At the conclusion of the case there were no significant changes
with EF at baseline and no new RWMA or valvular abnormalities. The FRAZIER was harvested in a skeletonized fashion. The arteriotomy performed on OM 2 led us to a large occlusive plaque requiring endarterectomy, which were able to do carefully without
significant damage to the paimiut arterial wall. Following endarterectomy we were able to probe the lumen both distally and proximally indicating both ends were open. Following bypass grafting, test dose cardioplegia was given down each distal and
confirmed patency and hemostasis. Each distal was probed both proximally and distally to confirm disease and patency, respectively. After coming off bypass we tested our right pulmonary vein and left atrium through external pacing to verify
completeness of our ablation lesion, this was done with satisfactory result.
Description of Procedure: The patient was taken to the operating room. Their identity and procedure to be performed were verified and they were positioned supine on the operating table. Induction via general anesthesia with endotracheal intubation
was performed and central venous access and arterial monitoring were inserted. A preoperative transesophageal echocardiogram was performed to assess cardiac function and valvular function. The patient was then prepped and draped from chin to feet in
a sterile fashion. A preoperative time-out was performed with all members of the team present. A midline chest incision was performed along with median sternotomy. Simultaneous endoscopic access of the right lower extremity for saphenous vein
harvest was obtained along with administration of an initial 5,000 units of IV heparin. A RulTract sternal retractor was positioned to exposure the left internal mammary bed. The mammary was harvested and found to have good flow. A medium clip was
applied to the distal end of the mammary after dividing it. It was wrapped in a papaverine soaked RayTec and replaced back into the left hemithorax. The RulTract was exchanged for a median sternal retractor. Full heparinization was given (a total of
45,000 units). We created a pericardial well. The aortic cannulation site was chosen where it was soft, pliable, and free of calcium. Cannulation was performed with an arterial cannula in the ascending aorta and a triple-stage venous cannula through
the right atrial appendage. The arterial cannula line had an appropriate bounce and correlating pressures with test dosing. Next, a root vent/antegrade cannula was inserted into the ascending aorta. The ACT was confirmed to be over 400 and
retrograde autologous priming was performed before commencing cardiopulmonary bypass. We then proceeded to dissect out the oblique sinus and separate the SVC from right pulmonary artery to create connection and passage through transverse sinus. The
red rubber for the AtriCure Encompass device was passed under the SVC through the transverse sinus behind the left atrium and around the apex of the heart, then passed through the oblique sinus. The encompass device was then attached to the magnetic
ends and carefully passed behind the heart to the oblique and transverse sinuses to fully surround the pulmonary veins. The device was clamped and we satisfactorily burned 3 times releasing and reclamping in between each burn to complete the
modified maze with pulmonary vein isolation and posterior box lesion. Next the pulmonary artery was away from the aorta to facilitate a clamp site. The aortic cross-clamp was placed after decreasing the flow on the bypass and mean
arterial pressure. A total of 1.2L initial dose of antegrade Del-Nido cardioplegia solution was given and planned for re-dosing every 75 minutes as necessary. There was rapid electro-mechanical arrest of the heart at 400 cc of cardioplegia. The left
ventricle was observed for distention on echocardiogram and manual palpation. Cold slush was placed into a sponge and topically on the RV while we systemically cooled to 34 degrees centigrade.
After the completion of antegrade cardioplegia, while the heart was nice and empty, we proceeded to expose the left atrial appendage and placed a 40 mm AtriClip across the base of the left atrial appendage. I positioned the heart to expose the
posterior wall of the heart where we are able to identify the left PLB. A otoe-missouria blade was used to expose the coronary and perform the arteriotomy. Coronary Holt scissors were used to enlarge the incision. The saphenous vein was trimmed and beveled
to an appropriate size. The distal anastomosis was performed using 7-0 prolene in an end-to-side fashion. Antegrade cardioplegia was administered into the graft. Appropriate hemostasis and flow were confirmed. The graft was measured for length to
OM and secured with a hanging stitch in preparation for a sequential graft. A suitable site on the second obtuse marginal was chosen. We dissected and discovered a large occlusive plaque. Using a periosteal elevator, we carefully the
plaque from the arterial wall until it was circumferentially free. We then carefully pulled on the distal and to free as much of the plaque as possible, we did see an area where blood was visible and opted to cut this distal and were we had
visualize lumen. Approximately we will were able to gently pull on the plaque and remove it from the vessel. This did leave a rather large and arteriotomy but we were able to easily probe distally and proximally to ensure we had appropriate lumen.
The vein graft was again measured for good length to ensure a nice gentle curve for a sequential. We opened the vein and a hqjf-og-[id number] anastomosis was created with a 7-0 prolene. Antegrade cardioplegia was administered into the graft. Appropriate
hemostasis and flow were confirmed. The graft was measured for length to the aorta and cut. A suitable target on the diagonal branch was identified, we dissected and prepped the distal target in similar fashion. An end-to-side anastomosis was
created using 7-0 Prolene. Antegrade cardioplegia was administered into the graft. Appropriate hemostasis and flow were confirmed. The graft was measured for length to the aorta and cut. A suitable target on the distal left anterior descending
was identified. We dissected and prepared the distal target in a similar fashion. We retrieved the FRAZIER from the chest and created a pericardial opening while being cognizant of the phrenic nerve to facilitate the course of the mammary. The distal
end of the mammary was prepped and beveled to size. We verified orientation and length of the SCARLETT and found brisk flow. An end-to-side anastomosis was created with a 7-0 prolene. We temporarily released the bulldog clamp on the mammary to inspect
flow. Perfusion to the LAD territory was visualized and hemostasis was confirmed. The bull clamp was replaced on the mammary. The heart was filled and the root was distended with antegrade cardioplegia to make final assessment of graft length and
orientation. We created 2 aortotomies using a #11 blade then a 4.0mm aortic punch. The proximal anastomoses were created in an end-to-side fashion using 6-0 prolene. At the the same time, we re-warmed to 36.5 degrees centigrade. The bulldog clamp
was removed from the mammary. Temporary bipolar ventricular pacing wires were placed on the base of the right ventricle. The patient was placed in a Trendelenburg position and flows on bypass were lowered. The aortic cross clamp was removed and
flows were slowly brought back up. All bypass grafts were inspected and were free from kinking or twisting. The distal and proximal anastomoses appeared hemostatic. At this point we moved onto testing our ablation line. We tested a spot on the
right superior pulmonary vein and left atrium independently and were able to confirm no signal was crossing from the superior pulmonary vein, reinforcing the completion of our ablation line. Once transesophageal echocardiography appeared
satisfactory for de-airing, the flows were temporarily lowered for root vent removal. After verifying acceptable parameters, we initiated weaning from cardiopulmonary bypass. Once we were off cardiopulmonary bypass, the venous cannula was clamped
and removed. A test dose of protamine was administered and the patient was monitored for any adverse reaction before resuming protamine. Once half of the protamine dose was delivered, pump suckers were turned off and the systolic blood pressure was
lowered for aortic decannulation. The aortic cannula was removed and pursestrings were tied down. All cannulation sites were oversewn with a 4-0 prolene. The mammary bed was inspected and hemostasis was confirmed. Once the mediastinum was
hemostatic, 19Fr Vidal drain was placed in the left pleural cavity and two 24Fr Vidal drains were placed within the pericardium. The sternum was approximated with 4 #7 single and 3 #8 double stainless steel wires. Fascia was approximated with #1
vicryl suture. The subcutaneous, dermis and epidermis were closed in layers in a running fashion. The skin wound was cleansed and dressed.
All instrument, sponge, and needle counts were confirmed to be correct x 2 at the end of the operation. The patient was transferred to the cardiac intensive care unit in critical but stable condition.
I, Dr. Shavonne Quinteros, was present, scrubbed for, and performed all critical elements of this procedure.
Shavonne Quinteros MD, MPH
Cardiothoracic Surgeon
[facility]
This operative dictation was created using the [employer] dictation system. Please excuse any grammatical, typographical, or 'sound alike' errors
--- NOTE | 2025-04-01 17:26 | RESPNOTE ---
Patient extubated to a 6L nasal cannula following CPAP trial and abg. Incentive spirometry instruction completed
[2025-04-01] MEDS: OFIRMEV 100 IV (17:27)
[2025-04-01] MEDS: DILAUDID 0.25 MG IV (17:30)
--- NOTE | 2025-04-01 17:35 | PTCARENOTE ---
EPOC completed at bedside by ROLL HAULER, pt extubated to 6LNC @1720 by RT. oriented x3. IS 1000. pt washed w/ CHG wipes, gown changed. pt c/o sternal pain, PRN Ofirmev and Dilaudid 0.25mg IVP given.
[2025-04-01 17:39] LABS: Hematocrit 33.2 % (39.0-52.0); Hemoglobin 11.5 g/dL (13.0-18.0); Platelet Count 244 10^3/uL (130-400)
[2025-04-01] MEDS: LR 250 ML IV ×2 (17:50→18:31)
[2025-04-01 18:01] LABS: Glucose - Point of Care 129 mg/dl (70-99)
--- NOTE | 2025-04-01 18:25 | W.PN.CARDCBS ---
Today's Communication / Plan
-
Overall doing well status post CABG/maze/atrial clip
Remains in sinus rhythm. Continue amiodarone and Metoprolol
Continue aspirin and Plavix
Impression / Plan
-
Assess:
CAD s/p CABG 04/01/25, FRAZIER to LAD, saphenous vein graft to diagonal, saphenous vein graft to left posterolateral�OM in sequence
Modified left atrial maze and 40 mm atrial clip
Paroxysmal atrial fibrillation
ADD
Hypertension
Hyperlipidemia
Tobacco abuse
PVCs
Mild aortic stenosis
History of back infection
Echo/EDU 01/09: EF 55 to 60%, mild MR, mild to moderate TR.
Plan:
Overall doing well status post CABG, remains in sinus rhythm. Wean pressors and wean to extubate.
Continue aspirin and Plavix.
Start amiodarone to try to maintain sinus rhythm.
Hemoglobin 11.5
Progress Note - Lumber Scaler
Subjective
Date of Service: April 01, 2025
Remains intubated and sedated. Overall in sinus rhythm and doing well.
Objective
Labs:
04/01/25 17:16
04/01/25 14:07
Labs
Hgb 11.5 g/dL (13.0-18.0) L 04/01/25 17:16
Hct 33.2 % (39.0-52.0) L 04/01/25 17:16
Plt Count 244 10^3/uL (130-400) D 04/01/25 17:16
PT 17.7 Sec (11.4-14.6) H 04/01/25 14:07
INR 1.45 04/01/25 14:07
APTT 30.3 Sec (23.4-35.0) 04/01/25 14:07
Sodium 138 mmol/L (135-145) 03/24/25 08:42
Potassium 4.3 mmol/L (3.5-5.1) 03/24/25 08:42
BUN 15 mg/dl (9-20) 04/01/25 14:07
Creatinine 0.8 mg/dL (0.7-1.3) 04/01/25 14:07
Glucose 103 mg/dl (70-99) H 04/01/25 14:07
Vital Signs and I&O:
Vital Signs
Temp Pulse Resp BP Pulse Ox
99.3 F 78 18 105/73 99
04/01/25 18:00 04/01/25 18:10 04/01/25 18:10 04/01/25 18:00 04/01/25 18:10
Vital Signs
Temp Pulse Resp BP Pulse Ox
99.3 F 78 18 105/73 99
04/01/25 18:00 04/01/25 18:10 04/01/25 18:10 04/01/25 18:00 04/01/25 18:10
Intake & Output
03/30/25 03/31/25 04/01/25 04/02/25
06:59 06:59 06:59 06:59
Intake Total 618.1 / 618.1
Output Total 630 / 630
Balance -11.9 / -11.9
Physical Exam
Physical Exam
GEN: No distress, intubated
HEENT: supple, anicteric, mmm, ET tube
LUNGS: CTA, no wheezes/rales
CV: Reg, S1/S2, 1/6 syst LSB, no rub
ABD: soft, BS+, NT/ND
EXT: No edema
NEURO: Gross non-focal
SKIN: No rash
[2025-04-01 19:00] LABS: Glucose - Point of Care 120 mg/dl (70-99)
--- NOTE | 2025-04-01 19:00 | PTCARENOTE ---
pt received from previous RN, walking rounds. pt in bed, drowsy but oriented x4. pt denies any pain at this time. SR w 1st degree AVB on monitor, HR 70s. epicardial V wires in place set to back up VVI 40, mA 10. R radial art line in place and
positional. SBP 100s. Levo gtt infusing @ 5mcg. RIJ cordis + slic cather in place w KVOs infusing. CVP ~15. +peripheral pulses. B/L breath sounds present. POX 98% on 4LNC. CT x3 in place to -20cm wall suction, no air leak or crepitus noted, drainage
WNL. abdomen s/n, hypoactive BS present. Insulin gtt infusing per glycemic protocol. reis catheter in place, draining CYU, UO adequate. all surgical sites stable. PIV x2 intact and patent. see worklist for full assessment, VS, and interventions.
[2025-04-01] MEDS: LOW STRENGTH ASPIRIN 81 MG PO (19:02)
[2025-04-01 20:25] LABS: B.E. -0.5 mmol/L; HCO3 24.2 mmol/L (21-28); O2 Saturation % 99.8 % (94-98); PCO2 39 mmHg (35-48); PO2 115 mmHg (83-108); Potassium 4.5 mMOL/L (3.5-5.1)
[2025-04-01 20:28] LABS: O2 Therapy 4L
[2025-04-01] MEDS: ANCEF 5 IV (20:31)
[2025-04-01] MEDS: DILAUDID 0.5 MG IV (20:31)
[2025-04-01] MEDS: SENOKOT 8.6 MG PO (20:32)
[2025-04-01] MEDS: ZOFRAN 4 MG IV (20:36)
[2025-04-01 21:43] LABS: Glucose - Point of Care 109 mg/dl (70-99)
[2025-04-01] MEDS: LIPITOR 40 MG PO (22:11)
[2025-04-01] MEDS: NEURONTIN 100 MG PO (22:11)
[2025-04-01] MEDS: PACERONE 200 MG PO (22:12)
[2025-04-01] MEDS: TYLENOL 975 MG PO (22:12)
--- NOTE | 2025-04-01 23:00 | PTCARENOTE ---
no acute changes in assessment, VSS. SR 1st degree, HR 70s. Levo gtt weaned to off, SBP 90s. POX 97% on 3LNC. CT output and UO WNL. Insulin gtt maintained per protocol. all surgical sites stable. turning/repositioning pt Q2H and as needed. pt
sleeping between care.
[2025-04-01 23:54] LABS: Glucose - Point of Care 110 mg/dl (70-99)
[2025-04-02] VITALS (30 sets, daily range): BP systolic 93–129; BP diastolic 51–72; PULSE 81; O2SAT 93–94; BMI 31.4
[2025-04-02 02:23] LABS: Glucose - Point of Care 108 mg/dl (70-99)
[2025-04-02 02:37] LABS: Hematocrit 30.5 % (39.0-52.0); Hemoglobin 10.5 g/dL (13.0-18.0); Mean Corp Hgb Conc. 34.4 g/dL (33.0-37.0); Mean Corpuscular Volume 94.1 fL (80.0-94.0); Platelet Count 204 10^3/uL (130-400); Red Cell Dist. Width 13.2 % (11.5-14.5)
--- NOTE | 2025-04-02 03:00 | PTCARENOTE ---
no acute changes in assessment. SR, HR 70s. Levo gtt remains off. CT output and UO WNL. Insulin gtt maintained. all surgical sites stable. AM labs drawn and sent. EKG done.
[2025-04-02 03:04] LABS: Blood Urea Nitrogen 18 mg/dl (9-20); Calcium 8.5 mg/dl (8.4-10.2); Carbon Dioxide 26 mmol/L (22-30); Chloride 106 mmol/L (98-107); Estimated Creatinine Clearance 92 ml/min; Glucose 101 mg/dl (70-99); Magnesium 2.1 mg/dl (1.6-2.3); Potassium 4.7 mmol/L (3.5-5.1); Sodium 134 mmol/L (135-145); eGFR > 60.00
--- NOTE | 2025-04-02 03:20 | W.PN.CT ---
Today's Communication / Plan
-
-pod#1
-no issues overnight
-mvO2 was 66.3. Current drips: only insulin
-CTs outputs: 2 meds 60/150, L pleur 90/230 in 12/24 hrs
-delined (slic and a-line)
-?d/c Dean (hx urinary retention requiring Dean for a year with prior hospitalization per pt, on Flomax and Cialis at home). Restarted Flomax, hopefully BP will tolerate
-d/c insulin
-current meds (ASA, Plavix, Lipitor, Lopressor, Amio, Gabapentin, Protonix)
-encourage IS, OOB
Assessment / Plan
-
- mv-CAD - s/p CABG x4 (In situ FRAZIER to LAD, Ao to RSVG to diagonal, Ao to RSVG to L PLB and OM 2 in sequence); Endarterectomy of second obtuse marginal coronary artery; Left atrial appendage ligation with 40 mm AtriClip; Modified left atrial maze
procedure with AtriCure Encompass device by Dr. Quinteros on 04/01/25, pod #1
- introp EDU: normal LV with moderate hypertrophy and no RWMA, EF 60 to 65%. There was normal RV function and mild MR with trace to mild TR. At the conclusion of the case, there were no significant changes with EF at baseline and no new RWMA or
valvular abnormalities.
- Paroxysmal A-fib diagnosed 01/09, s/p cardioversion
- Hypertension
- Hyperlipidemia
- Tobacco use, quit 03/17/25
- Class 1 obesity, BMI 31
- ADD
- R inguinal hernia repair
- Mild sleep apnea
- PTSD
- Hx lumbar discitis 2021
- Hx spinal infection 02/2022
- Acute postop blood loss anemia - no active bleed, no transfusion
- Acute postop atelectasis
- Acute postop hypovolemia with subsequent hypervolemia
- Suspected acute postop pericarditis/+ rub
Discussed patient care with: Nursing and Care Team
Subjective
-
Date of Service: April 02, 2025
Objective Data
-
Lab Results
04/02/25 02:23
04/02/25 02:23
PT 17.7 Sec (11.4-14.6) H 04/01/25 14:07
INR 1.45 04/01/25 14:07
APTT 30.3 Sec (23.4-35.0) 04/01/25 14:07
Vital Signs
Vital Signs
Temp Pulse Resp BP Pulse Ox
99.2 F 76 15 108/68 100
04/02/25 03:00 04/02/25 02:00 04/02/25 02:00 04/02/25 02:00 04/02/25 02:00
CT Intake/Output/Weight
04/01/25 04/01/25 04/02/25
06:59 18:59 06:59
Intake Total 618.1 / 1747.0 1128.9 / 1747.0
Output Total 630 / 1210 580 / 1210
Balance -11.9 / 537.0 548.9 / 537.0
SaO2: 100
Physical Exam
-
General: Awake and AOx3
Cardiovascular: Regular rate & rhythm, No Murmurs and Rub
Respiratory: Decreased Breath Sounds
Sternum: Stable
Incision: Clean, Dry and Intact
Extremities: Other (trace edema b/l, DPs by Doppler b/l)
Abdomen: soft, nontender, nondistended, +decreased bowel sounds
Data Reviewed
-
Lab Results: Results Reviewed
Medications: Active Meds Reviewed
Chest X-Ray: Report Reviewed and Image Reviewed
ECG: Report Reviewed and Image Reviewed
[2025-04-02 04:11] LABS: Glucose - Point of Care 100 mg/dl (70-99)
[2025-04-02] MEDS: ANCEF 5 IV ×2 (04:11→12:51)
[2025-04-02] MEDS: ROXICODONE 5 MG PO ×3 (05:31→15:32)
[2025-04-02] MEDS: TYLENOL 975 MG PO ×3 (05:31→21:34)
[2025-04-02 06:05] LABS: Glucose - Point of Care 114 mg/dl (70-99)
--- NOTE | 2025-04-02 06:30 | PTCARENOTE ---
R radial art line and RIJ slic d/c'd per orders without incident. pt assisted OOB to chair without difficulty. VSS.
[2025-04-02 08:00] LABS: Glucose - Point of Care 98 mg/dl (70-99)
--- NOTE | 2025-04-02 08:00 | PTCARENOTE ---
pt received from previous RN, oriented, OOB in chair. SR on the monitor, HR 70-80s. V wire insulated. SBP 110s. palpable radials, weakly palpable DPs. pt on 2LNC, 95-98% POX. lungs diminished in bases. IS encouraged. shallow breaths. CTx3, no air
leak or crepitus noted. pt abdomen round, hypoactive BS. denies n/v. tolerating clears. reis in place, clear yellow urine. sternal incision OVERHEAD WORKER, approximated. chest tube site c/d/i. R groin puncture OVERHEAD WORKER. RLE LEVI bandage in place. RIJ cordis
maintained. PIV x2. insulin gtt running as ordered. foam cushion applied to chair for conformability. see worklist for VS, I&O, and assessment.
[2025-04-02] MEDS: PLAVIX 75 MG PO (08:33)
[2025-04-02] MEDS: SENOKOT 8.6 MG PO ×2 (08:33→20:21)
[2025-04-02] MEDS: MAGNESIUM OXIDE 400 MG PO ×2 (08:33→20:21)
[2025-04-02] MEDS: LOW STRENGTH ASPIRIN 81 MG PO (08:33)
[2025-04-02] MEDS: FLOMAX 0.4 MG PO (08:33)
[2025-04-02] MEDS: NEURONTIN 100 MG PO ×3 (08:33→21:34)
[2025-04-02] MEDS: PROTONIX 40 MG PO (08:33)
[2025-04-02] MEDS: LOPRESSOR 12.5 MG PO ×2 (08:33→20:58)
[2025-04-02] MEDS: LIDOCAINE 4% PATCH 1 PATCH TOPICAL (08:34)
[2025-04-02] MEDS: BACTROBAN 2% OINTMENT 1 APPLIC NASAL ×2 (08:34→20:22)
[2025-04-02] MEDS: PACERONE 200 MG PO ×3 (08:38→21:34)
[2025-04-02 10:04] LABS: Glucose - Point of Care 117 mg/dl (70-99)
--- NOTE | 2025-04-02 10:28 | W.PN.ANS.POP ---
Anesthesia Post Operative
- Anesthesia Post Op Note
Vital Signs Stable-See Nursing Note: Yes
Airway Patent: Yes
Adequate Pain Control: Yes
Change in Mental Status: No
Current Postoperative Nausea & Vomiting: No
Anesthesia Complications: No
General Anesthetic Recall: No
Unplanned Admission: No
Post Op Hydration Adequate: Yes
--- NOTE | 2025-04-02 12:00 | PTCARENOTE ---
pt VSS, OOB in chair. lunch tolerated well. IS encouraged, chest PT performed. oral hygiene performed.
[2025-04-02 12:05] LABS: Glucose - Point of Care 99 mg/dl (70-99)
[2025-04-02] MEDS: NSS IV (12:12)
[2025-04-02] MEDS: FERRLECIT 110 MG IV (13:53)
[2025-04-02 13:58] LABS: Glucose - Point of Care 116 mg/dl (70-99)
--- NOTE | 2025-04-02 14:34 | PTCARENOTE ---
pt placed back to bed, L pleural CT dc'd as ordered. dressing c/d/i. insulin gtt dc'd as ordered. RLE LEVI bandage removed. resting between care.
--- NOTE | 2025-04-02 15:16 | W.PN.INTV ---
Addendum entered and electronically signed by Nereida Braun MD 04/03/25 05:50:
Inspector And Adjuster [employer] service sign off since patient is transferred to Telemetry.
Original Note:
Today's Communication / Plan
Recommendations
- Outpatient follow-up with pulmonary clinic for lung cancer screening as well as obstructive sleep apnea
- Wean insulin infusion per protocol
Assessment
-
75-year-old gentleman with multivessel coronary artery disease, s/p coronary artery bypass graft, maze procedure and left atrial appendage exclusion, POD # 1
Titrated off pressors per protocol
ECHO reviewed with normal LVEF
Management of chest tubes per primary service, no airleak noted
Patient extubated now, doing well on supplemental oxygen.
CXR with no obvious opacities/infiltrates
Maintain supplement oxygen as needed
No prior known history of pulmonary disease, longstanding history of smoking however.
Can add nebulizers if needed
Aspiration precautions
Encouraged incentive spirometry, OOB/ambulation/early mobility
Advance diet as tolerated following extubation
GI prophylaxis: Protonix
Monitor critical I/O's. Urine slightly blood-tinged, progressively clearing.
Dean/chest tube output
Hb/platelets postoperatively, mild drift
Trend CBC for now
Can transfuse if indicated for Hb <7, plt <50 in surgical patients
DVT prophylaxis including SCDs
Insulin protocol initiated and ongoing
Transition to SQ/off as indicated per team
Other medical diagnoses:
- Paroxysmal atrial fibrillation
- History of smoking. Smoked from age 21 up until age 75. Quit 3 weeks ago. He qualifies for low-dose CT scan for lung cancer screening, can pursue as outpatient.
- BPH
- SOFIA. Patient reports newly diagnosed with obstructive sleep apnea but has not started on PAP therapy yet. Continue outpatient follow-up.
Critical Care time 41 mins -- The patient is admitted for acute critical illness for the treatment of vital organ failure and/or prevention of further life-threatening conditions. Total care includes time spent in review of history, physical exam,
medications, hemodynamic/ventilator parameters, laboratory data, imaging and discussion with house staff, pharmacy, respiratory therapy, investor relations director, and nursing
Data:
EDU 03/2025: Normal size left ventricle with concentric hypertrophy. No regional wall motion abnormalities with LVEF 60-65%.
Normal right ventricular size and function. Dilated tricuspid valve with trace to mild regurgitation.
Mildly dilated right atrium. Normal left atrial appendage.
Functionally normal aortic valve. Mild mitral regurgitation.
Normal size aorta with grade III atheromatous disease of the lesser curvature of the aortic arch.
LHC 03/2025: 1. Multivessel coronary artery disease.
2. Low normal LVEF
CT Chest 03/2025: No acute CT findings in the chest
Moderate coronary arterial calcifications
Diffuse idiopathic skeletal hyperostosis of mid to lower thoracic spine
Subjective Dataa
Subjective Data
Date of Service:
Date of Service: April 02, 2025
Subjective:
Patient comfortably sitting, in no acute distress.
Review of Systems
Genitourinary: Other (All 14 systems reviewed and negative except as stated above in the history of present illness.)
Objective Data
Data Reviewed
Vital Signs / I&O / Oxygen:
Vital Signs
Temp Pulse Resp BP Pulse Ox
98.7 F 77 16 119/66 100
04/02/25 08:00 04/02/25 15:00 04/02/25 14:00 04/02/25 15:00 04/02/25 15:00
Intake and Output
04/01/25 04/02/25 04/03/25
06:59 06:59 06:59
Intake Total 1780.3 / 1791.6 211.4 / 211.4
Output Total 1380 / 1380 440 / 440
Balance 400.3 / 411.6 -228.6 / -228.6
SaO2 [CPAP] 100
SaO2 [SIMV] 99
SaO2 100
Nasal Cannula flow liters per 1
minute
Physical Exam
General: Comfortable
HEENT: Normocephalic
Cardiovascular: S1-S2
Respiratory: Clear and Non-Labored Respirations
GI: Soft and Non Distended
Neurology: Awake and Alert
Skin: Warm
Labs/Micro/Reports
Lab Data
04/02/25 02:23
04/02/25 02:23
Laboratory Results
04/01/25
20:12
pH 7.40
pCO2 39
pO2 115 H
HCO3 24.2
O2 Delivery Level 4l
[2025-04-02] MEDS: MUCINEX 600 MG PO ×2 (15:32→20:21)
[2025-04-02] MEDS: ALBUMIN 5% 250 IV (15:32)
--- NOTE | 2025-04-02 16:00 | PTCARENOTE ---
pt VSS, FINISH CARPENTER aware of UO. Albumin 5% given as ordered. Roxicodone 5mg PO given for pain. IS encouraged. ordered Mucinex given, chest PT performed.
--- NOTE | 2025-04-02 16:03 | W.PN.CARDCBS ---
Addendum entered and electronically signed by Julius Christensen DO 04/02/25 17:26:
I saw and examined the patient.
The Salary Manager's note was reviewed and I agree with the note.
Comment:
Plan:
Continue postop care
Remains sinus rhythm
Compensated cardiovascular status
Heart rate and blood pressure stable
Continue dual antiplatelet therapy
Discussed with nursing.
Original Note:
Today's Communication / Plan
-
Continue postop care
in sinus rhythm
Impression / Plan
-
Assess:
CAD s/p CABG 04/01/25, FRAZIER to LAD, saphenous vein graft to diagonal, saphenous vein graft to left posterolateral�OM in sequence
Modified left atrial maze and 40 mm atrial clip
Paroxysmal atrial fibrillation
ADD
Hypertension
Hyperlipidemia
Tobacco abuse
PVCs
Mild aortic stenosis
History of back infection
Echo/EDU 01/09: EF 55 to 60%, mild MR, mild to moderate TR.
Plan:
-s/p CABG FRAZIER to LAD, saphenous vein graft to diagonal, saphenous vein graft to left posterolateral�OM in sequence 04/01/25
-doing well. off pressors
-wean supp O2 as able
-remains in SR on review of tele. continue amiodarone, lopressor
-continue asa, plavix. hgb 10.5
-continue post op care, IS/OOB
-will follow
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
Subjective
Date of Service: April 02, 2025
Overall doing well. Reports chest pain controlled and breathing improving status post 2 out of 3 chest tubes removed
Objective
Labs:
04/02/25 02:23
04/02/25 02:23
Labs
Hgb 10.5 g/dL (13.0-18.0) L 04/02/25 02:23
Hct 30.5 % (39.0-52.0) L 04/02/25 02:23
Plt Count 204 10^3/uL (130-400) 04/02/25 02:23
PT 17.7 Sec (11.4-14.6) H 04/01/25 14:07
INR 1.45 04/01/25 14:07
APTT 30.3 Sec (23.4-35.0) 04/01/25 14:07
Sodium 134 mmol/L (135-145) L 04/02/25 02:23
Potassium 4.7 mmol/L (3.5-5.1) 04/02/25 02:23
BUN 18 mg/dl (9-20) 04/02/25 02:23
Creatinine 0.8 mg/dL (0.7-1.3) 04/02/25 02:23
Glucose 101 mg/dl (70-99) H 04/02/25 02:23
Vital Signs and I&O:
Vital Signs
Temp Pulse Resp BP Pulse Ox
98.7 F 80 16 119/66 99
04/02/25 08:00 04/02/25 15:30 04/02/25 14:00 04/02/25 15:00 04/02/25 15:30
Vital Signs
Temp Pulse Resp BP Pulse Ox
98.7 F 80 16 119/66 99
04/02/25 08:00 04/02/25 15:30 04/02/25 14:00 04/02/25 15:00 04/02/25 15:30
Intake & Output
03/31/25 04/01/25 04/02/25 04/03/25
07:59 07:59 07:59 07:59
Intake Total 1803.9 / 1803.9 187.8 / 187.8
Output Total 1570 / 1570 310 / 310
Balance 233.9 / 233.9 -122.2 / -122.2
Physical Exam
Physical Exam
GEN: No distress, awake, alert, oriented x3. On supplemental O2
HEENT: supple, anicteric, mmm, EOMI
LUNGS: Mild wheezes bilaterally
CV: Reg, S1/S2, no murmur
ABD: soft, BS+, NT/ND
EXT: No cyanosis, clubbing. Trace edema of bilateral lower extremity
NEURO: Gross non-focal
SKIN: Warm, pink, dry. No rash
[2025-04-02] MEDS: FLEXERIL 5 MG PO (17:54)
[2025-04-02] MEDS: VENTOLIN NEBULES 2.5 MG INH (17:54)
[2025-04-02] MEDS: LASIX 40 MG IV (18:28)
--- NOTE | 2025-04-02 18:36 | PTCARENOTE ---
pt OOB to chair w/ assist, +wheezing, pt denies SOB. respiratory therapist called to give treatment. POX 86-88% on 2LNC when respiratory therapist hooked up treatment. increased to 6LNC, POX 91-94%. pt has harsh productive cough, chest PT performed.
fine crackles at bases, scattered rhonchi. COMMODITY LEAD Mary aware. 40mg IVP Lasix given as ordered. PRN Flexeril given for pain.
[2025-04-02] MEDS: CORDARONE 103 MG IV (19:42)
[2025-04-02] MEDS: NON-FORMULARY ITEM PO ×2 (19:43→19:44)
--- NOTE | 2025-04-02 20:00 | PTCARENOTE ---
Assumed care of the patient at 1900. Patient AOx3, OOB to chair. SR on CM, rates 70-80's, BPs borderline but pt's baseline, pulses palpable/weakly palpable pedals, +1 generalized edema, v wire insulated. On 6LNC, rhonchus lung sounds, no SOB,
shallow respirations, IS encouraged; CTx2 - no air leak, tidaling, or crepitus noted. Abd SNT, round, obese, normoactive BS, no flatus yet per patient, denies nausea. Dean draining clear yellow, urine; good response from Lasix IV. All surgical
sites stable and intact, see worklist. SHAW bolton, PIV x2.
At approximately 1930, patient had a run of sinus tachycardia rates to 140's unsustained. Amio bolus administered, received PO medications. Cialis initially held for borderline BPs, administered after evidence of tolerance to nighttime Metoprolol
and Amio administration. Cialis then given late, see MAR. See worklist for interventions details, I/Os, etc. Patient helped back into bed, call gould within reach, assessment of needs ongoing.
[2025-04-02] MEDS: REMOVE LIDOCAINE PATCH 1 PATCH REMOVE (20:21)
[2025-04-02] MEDS: LIPITOR 40 MG PO (21:34)
[2025-04-02] MEDS: NON-FORMULARY ITEM 5 MG PO (21:45)
[2025-04-03] VITALS (17 sets, daily range): BP systolic 87–137; BP diastolic 45–69; PULSE 75; O2SAT 96–98; BMI 32.3
--- NOTE | 2025-04-03 | PTCARENOTE ---
Pt sleeping between care, VSS. No acute changes.
--- NOTE | 2025-04-03 01:14 | W.PN.CT ---
Today's Communication / Plan
-
-pod#2
-had brief a-fib @ 7:20 pm - tx with Amio bolus. Increased Lopressor to 25 bid. Maintain Cordis in case of further arrhythmia
-CTs outputs: 2 meds 110/310 in 12/24 hrs
-re-started on Flomax and Cialis for hx BPH with urinary retention
-diuresed with 40 iv Lasix- UO 720/1030 in 12/24 hrs
-current meds (ASA, Plavix, Lipitor, Lopressor 25 bid, Amio, Gabapentin, Mucinex, Flomax, Cialis, Protonix)
-encourage IS, OOB
Assessment / Plan
-
- mv-CAD - s/p CABG x4 (In situ FRAZIER to LAD, Ao to RSVG to diagonal, Ao to RSVG to L PLB and OM 2 in sequence); Endarterectomy of second obtuse marginal coronary artery; Left atrial appendage ligation with 40 mm AtriClip; Modified left atrial maze
procedure with AtriCure Encompass device by Dr. Quinteros on 04/01/25, pod #2
- introp EDU: normal LV with moderate hypertrophy and no RWMA, EF 60 to 65%. There was normal RV function and mild MR with trace to mild TR. At the conclusion of the case, there were no significant changes with EF at baseline and no new RWMA or
valvular abnormalities.
- Paroxysmal A-fib diagnosed 01/09, s/p cardioversion
- Hypertension
- Hyperlipidemia
- Tobacco use, quit 03/17/25
- Class 1 obesity, BMI 31
- ADD
- R inguinal hernia repair
- Mild sleep apnea (doesn't have home cpap yet)
- PTSD
- Hx lumbar discitis 2021
- Hx spinal infection 02/2022
- Acute postop blood loss anemia - no active bleed, no transfusion
- Acute postop atelectasis
- Acute postop pulmonary insufficiency/ hypoxia
- Acute postop hypovolemia with subsequent hypervolemia
- Suspected acute postop pericarditis/+ rub
- Acute postop brief a-fib on 04/02- tx with Amio bolus
Discussed patient care with: Nursing and Care Team
Subjective
-
Date of Service: April 03, 2025
Objective Data
-
PT 17.7 Sec (11.4-14.6) H 04/01/25 14:07
INR 1.45 04/01/25 14:07
APTT 30.3 Sec (23.4-35.0) 04/01/25 14:07
Vital Signs
Vital Signs
Temp Pulse Resp BP Pulse Ox
99.2 F 76 19 123/69 98
04/03/25 00:00 04/03/25 01:00 04/03/25 01:00 04/03/25 01:00 04/03/25 01:00
CT Intake/Output/Weight
04/02/25 04/02/25 04/03/25
06:59 18:59 06:59
Intake Total 1162.2 / 1791.6 1201.4 / 1681.4 480 / 1681.4
Output Total 750 / 1380 590 / 1145 555 / 1145
Balance 412.2 / 411.6 611.4 / 536.4 -75 / 536.4
SaO2: 98
Physical Exam
-
General: Awake and AOx3
Cardiovascular: Regular rate & rhythm, No Murmurs and Rub
Respiratory: Rales (at bases b/l. No wheeze) and Decreased Breath Sounds
Sternum: Stable
Incision: Clean, Dry and Intact
Extremities: Edema +1
Abdomen: mildly distended, soft, nontender, + bowel sounds, denies nausea, decreased flatus
Data Reviewed
-
Lab Results: Results Reviewed
Medications: Active Meds Reviewed
Chest X-Ray: Report Reviewed and Image Reviewed
ECG: Report Reviewed and Image Reviewed
[2025-04-03] MEDS: ROXICODONE 5 MG PO ×2 (03:04→22:55)
--- NOTE | 2025-04-03 04:00 | PTCARENOTE ---
Pt sleeping between care, awake to voice, slightly forgetful at times (regarding time of day); no acute issues, pain management, see NOELLE. VSFunmilayo.
[2025-04-03 05:28] LABS: Hematocrit 25.5 % (39.0-52.0); Hemoglobin 8.6 g/dL (13.0-18.0); Mean Corp Hgb Conc. 33.7 g/dL (33.0-37.0); Mean Corpuscular Volume 96.2 fL (80.0-94.0); Platelet Count 175 10^3/uL (130-400); Red Cell Dist. Width 13.4 % (11.5-14.5)
[2025-04-03 05:48] LABS: Blood Urea Nitrogen 26 mg/dl (9-20); Calcium 8.2 mg/dl (8.4-10.2); Carbon Dioxide 29 mmol/L (22-30); Chloride 100 mmol/L (98-107); Estimated Creatinine Clearance 74 ml/min; Glucose 142 mg/dl (70-99); Magnesium 2.0 mg/dl (1.6-2.3); Potassium 4.6 mmol/L (3.5-5.1); Sodium 132 mmol/L (135-145); eGFR > 60.00
[2025-04-03] MEDS: TYLENOL 975 MG PO ×3 (06:04→21:03)
[2025-04-03] MEDS: LOPRESSOR 25 MG PO ×2 (08:01→20:59)
[2025-04-03] MEDS: LOW STRENGTH ASPIRIN 81 MG PO (08:01)
[2025-04-03] MEDS: MUCINEX 600 MG PO ×2 (08:01→20:59)
[2025-04-03] MEDS: PACERONE 200 MG PO ×3 (08:01→21:56)
[2025-04-03] MEDS: PROTONIX 40 MG PO (08:01)
[2025-04-03] MEDS: MAGNESIUM OXIDE 400 MG PO ×2 (08:01→20:59)
[2025-04-03] MEDS: PLAVIX 75 MG PO (08:01)
[2025-04-03] MEDS: SENOKOT 8.6 MG PO ×2 (08:02→20:59)
[2025-04-03] MEDS: BACTROBAN 2% OINTMENT 1 APPLIC NASAL ×2 (08:02→21:01)
[2025-04-03] MEDS: LIDOCAINE 4% PATCH TOPICAL (08:02)
[2025-04-03] MEDS: FLOMAX 0.4 MG PO (08:02)
[2025-04-03] MEDS: VENTOLIN NEBULES 2.5 MG INH (08:13)
--- NOTE | 2025-04-03 08:34 | PTCARENOTE ---
Received pt from revival clerk RN at 0700; pt AAOx3 and resting comfortably in chair; NSR 1st Degree AVB on monitor and VSS; RIJ Cordis and PIV x2 patent; Epicardial V-wires insulated; Lungs diminished with crackles throughout and expiratory wheezing;
PRN breathing treatment provided by respiratory; IS to 500; CT x2 to -20 wall suction no air leak and no crepitus noted; hypoactive bowel sounds and pt reports flatus; Dean catheter draining yellow urine; +1 generalized edema noted; palpable
radials and weak lower extremity pulses noted; all surgical sites C/D/I; see nursing documentation for further details.
[2025-04-03] MEDS: NEURONTIN PO (09:20)
[2025-04-03] MEDS: LASIX 40 MG IV (09:34)
[2025-04-03] MEDS: NON-FORMULARY ITEM 5 MG PO (09:34)
--- NOTE | 2025-04-03 09:42 | PTCARENOTE ---
Dean catheter removed per CTNP order.
--- NOTE | 2025-04-03 11:50 | PTCARENOTE ---
Assessment unchanged; NSR 1st Degree AVB on monitor and VSS; pt resting comfortably in chair.
[2025-04-03] MEDS: FERRLECIT 110 MG IV (13:20)
[2025-04-03] MEDS: FLEXERIL 5 MG PO (14:30)
--- NOTE | 2025-04-03 14:57 | W.PN.CARDCBS ---
Addendum entered and electronically signed by Julius Christensen, 04/03/25 15:11:
I saw and examined the patient.
The Perioperative Assistant's note was reviewed and I agree with the note.
Comment:
Plan:
Continue postop surgical care
Remains sinus rhythm with short atrial tachycardia episode.
Continue DAPT, consider transition to anticoagulation once ok with surgery given hx of PAFib
Original Note:
Today's Communication / Plan
-
wean supp O2
maintaining SR
follow EKG
IS
Impression / Plan
-
Assess:
CAD s/p CABG 04/01/25, FRAZIER to LAD, saphenous vein graft to diagonal, saphenous vein graft to left posterolateral�OM in sequence
Modified left atrial maze and 40 mm atrial clip
Paroxysmal atrial fibrillation
ADD
Hypertension
Hyperlipidemia
Tobacco abuse
PVCs
Mild aortic stenosis
History of back infection
Echo/EDU 01/09: EF 55 to 60%, mild MR, mild to moderate TR.
Plan:
-s/p CABG FRAZIER to LAD, saphenous vein graft to diagonal, saphenous vein graft to left posterolateral�OM in sequence 04/01/25
-wean supp O2. diurese as able
-evidence of pericarditis by EKG 04/02. without significant pain, follow
-in SR with one brief run of atach on review of tele overnight. given IV amio bolus. continue po amio. lopressor dose increased to 25mg Q12H without recurrence.
-continue asa, plavix. hgb 8.6
-continue post op care
-encouraged IS
-d/w nursing
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
Subjective
Date of Service: April 03, 2025
reports difficulty taking deep breaths. no significant pain
Objective
Labs:
04/03/25 04:49
04/03/25 04:49
Labs
Hgb 8.6 g/dL (13.0-18.0) L 04/03/25 04:49
Hct 25.5 % (39.0-52.0) L 04/03/25 04:49
Plt Count 175 10^3/uL (130-400) 04/03/25 04:49
PT 17.7 Sec (11.4-14.6) H 04/01/25 14:07
INR 1.45 04/01/25 14:07
APTT 30.3 Sec (23.4-35.0) 04/01/25 14:07
Sodium 132 mmol/L (135-145) L 04/03/25 04:49
Potassium 4.6 mmol/L (3.5-5.1) 04/03/25 04:49
BUN 26 mg/dl (9-20) H 04/03/25 04:49
Creatinine 1.0 mg/dL (0.7-1.3) 04/03/25 04:49
Glucose 142 mg/dl (70-99) H 04/03/25 04:49
Vital Signs and I&O:
Vital Signs
Temp Pulse Resp BP Pulse Ox
98 F 80 20 98/50 95
04/03/25 11:49 04/03/25 11:40 04/03/25 11:49 04/03/25 11:40 04/03/25 11:49
Vital Signs
Temp Pulse Resp BP Pulse Ox
98 F 80 20 98/50 95
04/03/25 11:49 04/03/25 11:40 04/03/25 11:49 04/03/25 11:40 04/03/25 11:49
Intake & Output
04/01/25 04/02/25 04/03/25 04/04/25
07:59 07:59 07:59 07:59
Intake Total 1803.9 / 1803.9 1707.8 / 1717.8 90 / 90
Output Total 1570 / 1570 1230 / 1295 440 / 440
Balance 233.9 / 233.9 477.8 / 422.8 -350 / -350
Physical Exam
Physical Exam
GEN: No distress, awake, alert, oriented x3. sitting in chair. On supplemental O2
HEENT: supple, anicteric, mmm, EOMI
LUNGS: mild wheezes on L, diminished BS B/L
CV: Reg, S1/S2, no murmur
ABD: soft, BS+, NT/ND
EXT: No cyanosis, clubbing. Trace edema of bilateral lower extremity
NEURO: Gross non-focal
SKIN: Warm, pink, dry. No rash
--- NOTE | 2025-04-03 15:35 | PTCARENOTE ---
NSR PACs on monitor and VSS; assessment unchanged and pt resting comfortably in chair.
[2025-04-03] MEDS: NEURONTIN 100 MG PO ×2 (16:37→21:04)
--- NOTE | 2025-04-03 20:00 | PTCARENOTE ---
Resumed care of the patient at 1900. Patient AOx3, OOB in the chair. SR on CM, rates 70-80's, pulses weakly palpable pedals, +2 generalized nonpitting edema, v wire insulated. On 4LNC, rhonchus lung sounds, no SOB, shallow respirations, intermittent
harsh productive cough; CTx2 - no air leak, tidaling, or crepitus noted. Abd SNT, round, obese, normoactive BS, passing flatus per patient, no nausea. Patient had an episode of incontinence after urgency, small amount captured in the urinal and the
remainder saturating the pad. All surgical sites stable and intact, see worklist. SHAW bolton, PIV x2. See nursing worklist for nursing intervention and assessment details.
[2025-04-03] MEDS: NSS IV (20:12)
[2025-04-03] MEDS: REMOVE LIDOCAINE PATCH 1 PATCH REMOVE (20:30)
[2025-04-03] MEDS: LIPITOR 40 MG PO (21:04)
[2025-04-04] VITALS (28 sets, daily range): BP systolic 78–123; BP diastolic 46–75; PULSE 74; O2SAT 94–100; BMI 32.7
--- NOTE | 2025-04-04 | PTCARENOTE ---
No acute changes, sleeping between care. Leydi for pain, call gould within reach, assessment of needs ongoing.
--- NOTE | 2025-04-04 | PTCARENOTE ---
Male cricketwick applied for additional episodes of urge incontinence.
Otherwise no acute changes, sleeping between care. Leydi for pain, call gould within reach, assessment of needs ongoing.
[2025-04-04] MEDS: CORDARONE 103 MG IV (03:38)
[2025-04-04] MEDS: CORDARONE 259 MG IV ×2 (03:49→12:18)
[2025-04-04] MEDS: NSS 500 IV (03:52)
--- NOTE | 2025-04-04 04:00 | PTCARENOTE ---
Addendum entered by Kari Rueda RN 04/04/25 06:52:
Pt c/o SOB, O2 increased to 4L, pt helped OOB, CVPA made aware. Pt stated he felt better sitting up.
Original Note:
Patient with increased ectopy on CM, CVPA aware, amio bolus and gtt ordered and administered, see MAR. VS otherwise stable. Patient weaned to 2LNC.
[2025-04-04 04:28] LABS: Hematocrit 24.4 % (39.0-52.0); Hemoglobin 8.4 g/dL (13.0-18.0); Mean Corp Hgb Conc. 34.4 g/dL (33.0-37.0); Mean Corpuscular Volume 97.2 fL (80.0-94.0); Platelet Count 160 10^3/uL (130-400); Red Cell Dist. Width 13.3 % (11.5-14.5)
[2025-04-04 04:49] LABS: Blood Urea Nitrogen 23 mg/dl (9-20); Calcium 8.2 mg/dl (8.4-10.2); Carbon Dioxide 30 mmol/L (22-30); Chloride 98 mmol/L (98-107); Estimated Creatinine Clearance 94 ml/min; Glucose 102 mg/dl (70-99); Magnesium 1.9 mg/dl (1.6-2.3); Potassium 4.1 mmol/L (3.5-5.1); Sodium 130 mmol/L (135-145); eGFR > 60.00
[2025-04-04] MEDS: TYLENOL 975 MG PO ×3 (05:05→22:47)
--- NOTE | 2025-04-04 06:19 | W.PN.CT ---
Today's Communication / Plan
-
-pod #3
-freq PACs- started Amio bolus and drip with recent hx of a-fib 04/03. Lopressor is at 25 bid- difficult to uptitrate d/t low BP
-CT outputs: 2 meds 30/110 in 12/24 hrs
-diuresed with 40 iv Lasix on 04/03. Male deangelo is on for accurate UO and incontinence
-appears volume overloaded, wt is up from 216 preop to 225 on 04/03 - continue diuresis
-current meds (ASA, Plavix, Lipitor, Lopressor 25 bid, Amio, Gabapentin, Mucinex, Flomax, Cialis, Protonix)
-encourage IS, OOB
Assessment / Plan
-
- mv-CAD - s/p CABG x4 (In situ FRAZIER to LAD, Ao to RSVG to diagonal, Ao to RSVG to L PLB and OM 2 in sequence); Endarterectomy of second obtuse marginal coronary artery; Left atrial appendage ligation with 40 mm AtriClip; Modified left atrial maze
procedure with AtriCure Encompass device by Dr. Quinteros on 04/01/25, pod #3
- introp EDU: normal LV with moderate hypertrophy and no RWMA, EF 60 to 65%. There was normal RV function and mild MR with trace to mild TR. At the conclusion of the case, there were no significant changes with EF at baseline and no new RWMA or
valvular abnormalities.
- Paroxysmal A-fib diagnosed 01/09, s/p cardioversion
- Hypertension
- Hyperlipidemia
- Tobacco use, quit 03/17/25
- Class 1 obesity, BMI 31
- ADD
- R inguinal hernia repair
- Mild sleep apnea (doesn't have home cpap yet)
- PTSD
- Hx lumbar discitis 2021
- Hx spinal infection 02/2022
- Acute postop blood loss anemia - no active bleed, no transfusion
- Acute postop atelectasis
- Acute postop pulmonary insufficiency/ hypoxia
- Acute postop hypovolemia with subsequent hypervolemia
- Suspected acute postop pericarditis/+ rub
- Acute postop brief a-fib on 04/02- tx with Amio bolus
- Acute postop hyponatremia
Discussed patient care with: Nursing and Care Team
Subjective
-
Date of Service: April 04, 2025
Objective Data
-
PT 17.7 Sec (11.4-14.6) H 04/01/25 14:07
INR 1.45 04/01/25 14:07
APTT 30.3 Sec (23.4-35.0) 04/01/25 14:07
Vital Signs
Vital Signs
Temp Pulse Resp BP Pulse Ox
98.3 F 71 17 116/66 97
04/04/25 00:00 04/04/25 02:00 04/04/25 02:00 04/04/25 01:33 04/04/25 00:00
CT Intake/Output/Weight
04/03/25 04/03/25 04/04/25
06:59 18:59 06:59
Intake Total 530 / 1731.4 130 / 370 240 / 370
Output Total 830 / 1420 545 / 775 230 / 775
Balance -300 / 311.4 -415 / -405 10 / -405
SaO2: 97
Physical Exam
-
Cardiovascular: Regular rate & rhythm, No Murmurs and Rub
Respiratory: Decreased Breath Sounds
Sternum: Stable
Incision: Clean, Dry and Intact
Extremities: Edema +1 (hands and ankles b/l)
Abdomen: soft, nontender, nondistended, + flatus, + bowel sounds
Data Reviewed
-
Lab Results: Results Reviewed
Medications: Active Meds Reviewed
Chest X-Ray: Report Reviewed and Image Reviewed
ECG: Report Reviewed and Image Reviewed
--- NOTE | 2025-04-04 07:30 | PTCARENOTE ---
Addendum entered by Alayna Limon RN 04/04/25 09:21:
Amiodarone infusing see flow sheet for details.
Original Note:
Received pt from biometric technician RN; pt AAOx3 and resting comfortably in chair; NSR PACs on monitor and VSS: Epicardial V wire insulated; RIJ Cordis and PIV x2 patent; Lungs diminished with fine crackles at bases; IS to 1000; CT x2 to -20 wall suction
no air leak and no crepitus noted; hypoactive bowel sounds; pt voiding yellow urine via male pure wick, skin C/D/I; +1 generalized edema noted; palpable radial pulses and weak lower extremity DP; all surgical sites C/D/I; see nursing documentation
for further details.
[2025-04-04] MEDS: BACTROBAN 2% OINTMENT 1 APPLIC NASAL ×2 (07:53→21:52)
[2025-04-04] MEDS: MUCINEX 600 MG PO ×2 (07:54→21:53)
[2025-04-04] MEDS: NEURONTIN 100 MG PO ×3 (07:54→22:46)
[2025-04-04] MEDS: PACERONE 200 MG PO ×3 (07:54→22:46)
[2025-04-04] MEDS: PROTONIX 40 MG PO (07:54)
[2025-04-04] MEDS: PLAVIX 75 MG PO (07:54)
[2025-04-04] MEDS: LOPRESSOR 25 MG PO ×2 (07:54→21:52)
[2025-04-04] MEDS: FLOMAX 0.4 MG PO (07:54)
[2025-04-04] MEDS: MAGNESIUM OXIDE 400 MG PO ×2 (07:54→21:53)
[2025-04-04] MEDS: LOW STRENGTH ASPIRIN 81 MG PO (07:54)
[2025-04-04] MEDS: SENOKOT 8.6 MG PO ×2 (07:54→21:53)
[2025-04-04] MEDS: LIDOCAINE 4% PATCH TOPICAL (07:55)
[2025-04-04] MEDS: LASIX 40 MG IV ×2 (07:55→15:10)
--- NOTE | 2025-04-04 09:04 | PTCARENOTE ---
Epicardial V wire pulled by CTSHAINA.
[2025-04-04] MEDS: NON-FORMULARY ITEM 5 MG PO (10:12)
--- NOTE | 2025-04-04 10:23 | PTCARENOTE ---
Mediastinal chest tubes X2 removed per CTNP order.
--- NOTE | 2025-04-04 13:00 | PTCARENOTE ---
NSR PACs on monitor and VSS; assessment unchanged; Amiodarone infusing see flow sheet for details; pt resting comfortably in chair.
[2025-04-04] MEDS: FERRLECIT 110 MG IV (14:08)
--- NOTE | 2025-04-04 15:27 | W.PN.CARDCBS ---
Addendum entered and electronically signed by Jevon Shen MD 04/04/25 17:24:
I saw and examined the patient.
The Engraver Pantograph's note was reviewed and I agree with the note.
Comment: GEN: No distress, awake, Ox3
HEENT: supple, anicteric, mmm
LUNGS: CTA, no wheezes/rales
CV: Reg, S1/S2, no rub
ABD: soft, BS+, NT/ND
EXT: No edema
NEURO: Gross non-focal
SKIN: sternotomy
Plan:
Having some PACs and initiated on IV amiodarone. Continue to follow.
EKG with pericarditis but minimal pain.
Agree with diuresis.
Continue aspirin, Plavix, and metoprolol
Original Note:
Today's Communication / Plan
-
continue post op care
follow rhythm
Impression / Plan
-
Assess:
CAD s/p CABG 04/01/25, FRAZIER to LAD, saphenous vein graft to diagonal, saphenous vein graft to left posterolateral�OM in sequence
Modified left atrial maze and 40 mm atrial clip
Paroxysmal atrial fibrillation, not anticoagulated due to patient choice, significant OA
ADD
Hypertension
Hyperlipidemia
Tobacco abuse
PVCs
Mild aortic stenosis
History of back infection
Echo/EDU 01/09: EF 55 to 60%, mild MR, mild to moderate TR.
Plan:
-s/p CABG FRAZIER to LAD, saphenous vein graft to diagonal, saphenous vein graft to left posterolateral�OM in sequence 04/01/25
-resting comfortable
-weaned off supp O2. continue diuresis
-evidence of pericarditis by EKG 04/02. without significant pain.
-had PACs on tele so started on IV amio gtt, presently at 0.5. no afib noted. continue lopressor, po amiodarone
-continue asa, plavix. hgb 8.4. Although he has history of paroxysmal atrial fibrillation, he is not on anticoagulation due to significant osteoarthritis requiring nonsteroidal therapy. He has been monitoring for atrial fibrillation using smart
watch/Kardia in outpatient setting
-continue post op care, OOB/IS
-d/w nursing
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
Subjective
Date of Service: April 04, 2025
Resting comfortably
Objective
Labs:
04/04/25 03:37
04/04/25 03:37
Labs
Hgb 8.4 g/dL (13.0-18.0) L 04/04/25 03:37
Hct 24.4 % (39.0-52.0) L 04/04/25 03:37
Plt Count 160 10^3/uL (130-400) 04/04/25 03:37
PT 17.7 Sec (11.4-14.6) H 04/01/25 14:07
INR 1.45 04/01/25 14:07
APTT 30.3 Sec (23.4-35.0) 04/01/25 14:07
Sodium 130 mmol/L (135-145) L 04/04/25 03:37
Potassium 4.1 mmol/L (3.5-5.1) 04/04/25 03:37
BUN 23 mg/dl (9-20) H 04/04/25 03:37
Creatinine 0.8 mg/dL (0.7-1.3) 04/04/25 03:37
Glucose 102 mg/dl (70-99) H 04/04/25 03:37
Vital Signs and I&O:
Vital Signs
Temp Pulse Resp BP Pulse Ox
98.4 F 79 20 111/62 92
04/04/25 12:31 04/04/25 15:10 04/04/25 12:31 04/04/25 15:10 04/04/25 12:31
Vital Signs
Temp Pulse Resp BP Pulse Ox
98.4 F 79 20 111/62 92
04/04/25 12:31 04/04/25 15:10 04/04/25 12:31 04/04/25 15:10 04/04/25 12:31
Intake & Output
04/02/25 04/03/25 04/04/25 04/05/25
07:59 07:59 07:59 07:59
Intake Total 1803.9 / 1803.9 1707.8 / 1717.8 860 / 860
Output Total 1570 / 1570 1230 / 1295 1075 / 1125 800 / 800
Balance 233.9 / 233.9 477.8 / 422.8 -215 / -265 -800 / -800
Physical Exam
Physical Exam
GEN: No distress, resting comfortably
HEENT: supple, mmm
LUNGS: no audible wheezes
CV: SR with occ PACs on tele
EXT: trace edema of B/L LE
NEURO: Gross non-focal
SKIN: Warm, pink, dry. No rash. Sternotomy incision c/d/i
--- NOTE | 2025-04-04 15:34 | CM ---
dc plans remain home when medically stable. he is agreeable to a f/u visit for [facility] transitional care nurse after dc.
--- NOTE | 2025-04-04 16:28 | PTCARENOTE ---
Assessment unchanged; NSR PACs on monitor and VSS; pt resting comfortably in chair.
--- NOTE | 2025-04-04 20:00 | PTCARENOTE ---
Report received from PATRICE Catalan. Walking rounds done. Pt sitting on BSC. Had small BM. Pericare performed. Helped back to bed with 2 RNs. Pt assessed. VS done. See flowsheets. Oriented x 4. Speech clear. Equal strength x 4. Pt on room air in chair.
Sats 95%. Placed on 2L/NC in bed. Sats 95-97%. BBS present. Decreased B bases. CDB and IS/flutter valve encouraged. Pt in SR with occasional PACs. Amio gtt at 0.5 mg/min. Normotensive. Palpable radial and DP pulses. +1 edema BLE. For wound
assessments, see flowsheets. No c/o pain. Scheduled meds given. Ongoing plan of care.
[2025-04-04] MEDS: REMOVE LIDOCAINE PATCH REMOVE (21:53)
--- NOTE | 2025-04-04 22:30 | PTCARENOTE ---
Evening meds given. CHG bath done. Male purewick applied due to hx incontinence. VS done. See flowsheet. Remains in SR with occasional PACs.
[2025-04-04] MEDS: LIPITOR 40 MG PO (22:46)
[2025-04-05] VITALS (13 sets, daily range): BP systolic 103–165; BP diastolic 49–147; PULSE 75; O2SAT 95–96; BMI 32.6
--- NOTE | 2025-04-05 01:00 | PTCARENOTE ---
VS done. see flowsheet. Normotensive. SR with occasional PACs. Amio gtt at 0.5 mg/min.
--- NOTE | 2025-04-05 03:30 | PTCARENOTE ---
Pt assisted to BSC to have large BM. Standing scale weight done: 103 kg. Labs drawn and sent. Amio gtt off at 0330.
[2025-04-05 04:52] LABS: Hematocrit 24.8 % (39.0-52.0); Hemoglobin 8.5 g/dL (13.0-18.0); Mean Corp Hgb Conc. 34.3 g/dL (33.0-37.0); Mean Corpuscular Volume 93.9 fL (80.0-94.0); Platelet Count 191 10^3/uL (130-400); Red Cell Dist. Width 13.1 % (11.5-14.5)
[2025-04-05 05:14] LABS: Blood Urea Nitrogen 20 mg/dl (9-20); Calcium 8.1 mg/dl (8.4-10.2); Carbon Dioxide 29 mmol/L (22-30); Chloride 97 mmol/L (98-107); Estimated Creatinine Clearance 95 ml/min; Glucose 107 mg/dl (70-99); Magnesium 1.9 mg/dl (1.6-2.3); Potassium 3.8 mmol/L (3.5-5.1); Sodium 129 mmol/L (135-145); eGFR > 60.00
--- NOTE | 2025-04-05 06:38 | W.PN.CT ---
Today's Communication / Plan
-
Plan:
-No major issues overnight. Hemodynamically and neurologically intact
-Completed Amiodarone gtt for postop PAC's overnight. Currently off all drips
-NSR @ 70 bpm
-Monitor hyponatremia, 129. Fluid restriction, diuresis as BP permits
-Will replete ca++ and K+ today
-Cont. current meds -current meds (ASA, Plavix, Lipitor, Lopressor 25 bid, Amio, Gabapentin, Mucinex, Flomax, Cialis, Protonix)
-F/U 2-view cxr
-Encourage use of IS
-OOB into chair
-Temporary wires d/c'd yesterday 04/04
-Home later today vs tomorrow
Assessment / Plan
-
- mv-CAD - s/p CABG x4 (In situ FRAZIER to LAD, Ao to RSVG to diagonal, Ao to RSVG to L PLB and OM 2 in sequence); Endarterectomy of second obtuse marginal coronary artery; Left atrial appendage ligation with 40 mm AtriClip; Modified left atrial maze
procedure with AtriCure Encompass device by Dr. Quinteros on 04/01/25, pod #4
- introp EDU: normal LV with moderate hypertrophy and no RWMA, EF 60 to 65%. There was normal RV function and mild MR with trace to mild TR. At the conclusion of the case, there were no significant changes with EF at baseline and no new RWMA or
valvular abnormalities.
- Paroxysmal A-fib diagnosed 01/09, s/p cardioversion
- Hypertension
- Hyperlipidemia
- Tobacco use, quit 03/17/25
- Class 1 obesity, BMI 31
- ADD
- R inguinal hernia repair
- Mild sleep apnea (doesn't have home cpap yet)
- PTSD
- Hx lumbar discitis 2021
- Hx spinal infection 02/2022
- Acute postop blood loss anemia - no active bleed, no transfusion
- Acute postop atelectasis
- Acute postop pulmonary insufficiency/ hypoxia
- Acute postop hypovolemia with subsequent hypervolemia
- Suspected acute postop pericarditis/+ rub
- Acute postop brief a-fib on 04/02- tx with Amio bolus
- Acute postop hyponatremia
- Acute postop hypokalemia
Discussed patient care with: Cardiology, Nursing, Respiratory Therapy, Pharmacy and Care Team
Subjective
-
Date of Service: April 05, 2025
Pt c/o mild incisional pain, otherwise feels well
Objective Data
-
Lab Results
04/05/25 04:28
04/05/25 04:28
PT 17.7 Sec (11.4-14.6) H 04/01/25 14:07
INR 1.45 04/01/25 14:07
APTT 30.3 Sec (23.4-35.0) 04/01/25 14:07
Vital Signs
Vital Signs
Temp Pulse Resp BP Pulse Ox
97.9 F 71 15 121/67 96
04/05/25 03:55 04/05/25 04:00 04/05/25 03:55 04/05/25 03:55 04/05/25 03:55
CT Intake/Output/Weight
04/04/25 04/04/25 04/05/25
06:59 18:59 06:59
Intake Total 730 / 860 357.1 / 357.1
Output Total 530 / 1075 800 / 1800 1000 / 1800
Balance 200 / -215 -800 / -1442.9 -642.9 / -1442.9
SaO2: 96 (RA)
Physical Exam
-
General: Awake, Oriented and AOx3
Cardiovascular: Regular rate & rhythm, No Murmurs and No Gallop
Respiratory: Decreased Breath Sounds (at bases, otherwise clear)
Sternum: Stable
Incision: Clean, Dry, Intact and Dressing Intact
Extremities: Other (+trace edema)
Data Reviewed
-
Lab Results: Results Reviewed
Medications: Active Meds Reviewed
Chest X-Ray: Report Reviewed and Image Reviewed
ECG: Report Reviewed and Image Reviewed
[2025-04-05] MEDS: TYLENOL 975 MG PO ×3 (06:54→21:17)
--- NOTE | 2025-04-05 07:15 | PTCARENOTE ---
Pt helped to chair at 0645. Purewick removed. Remains in SR, occasional PACs. Report to PATRICE Shen. Walking rounds done.
[2025-04-05] MEDS: PLAVIX 75 MG PO (08:14)
[2025-04-05] MEDS: PACERONE 200 MG PO ×3 (08:14→21:18)
[2025-04-05] MEDS: LOPRESSOR 25 MG PO ×2 (08:15→19:52)
[2025-04-05] MEDS: SENOKOT 8.6 MG PO ×2 (08:15→19:52)
[2025-04-05] MEDS: MUCINEX 600 MG PO ×2 (08:15→19:51)
[2025-04-05] MEDS: LOW STRENGTH ASPIRIN 81 MG PO (08:15)
[2025-04-05] MEDS: LASIX 40 MG IV ×2 (08:15→15:21)
[2025-04-05] MEDS: FLOMAX 0.4 MG PO (08:15)
[2025-04-05] MEDS: KCL 40 MEQ PO (08:15)
[2025-04-05] MEDS: PROTONIX 40 MG PO (08:15)
[2025-04-05] MEDS: NEURONTIN 100 MG PO ×3 (08:15→21:18)
[2025-04-05] MEDS: MAGNESIUM OXIDE 400 MG PO ×2 (08:15→19:53)
[2025-04-05] MEDS: LIDOCAINE 4% PATCH TOPICAL (08:16)
[2025-04-05] MEDS: NON-FORMULARY ITEM 5 MG PO (08:16)
[2025-04-05] MEDS: BACTROBAN 2% OINTMENT 1 APPLIC NASAL (08:16)
--- NOTE | 2025-04-05 08:30 | PTCARENOTE ---
Assumed care of patient at 0700. Pt is awake, alert, and oriented. No complaints of pain at this time. Pt remains SR with HR 70. BP 106/62 MAP 75. Pulse oximetry 95% on room air. Pt achieving 2000 with IS, continued use encouraged. Pt tolerating PO
diet. Voiding without issue. Pt reports incontinents at times. Midsternal incision approximated and SHEEP FARM MANAGER. Right leg incision approximated and SHEEP FARM MANAGER. Right groin puncture CDI. Right IJ cordis in place with KVO. Pt currently OOB in chair resting
comfortably.
[2025-04-05] MEDS: CALCIUM GLUCONATE 100 IV (09:19)
--- NOTE | 2025-04-05 11:45 | PTCARENOTE ---
Pt worked with cardiac rehab tolerated well, steps completed. Cordis d/c'd per order. 2 view x-ray completed.
[2025-04-05] MEDS: NSS IV (12:39)
--- NOTE | 2025-04-05 15:51 | PTCARENOTE ---
Patient admitted to IVU. Patient AO x3. +1 dependent edema. Sternal incision healing with ABD covering old chest tube sites. Right lower leg glued and approximated. Lungs CTA, productive clear sputum, denies shortness of breath. In chair, oriented
to room and call gould in reach
[2025-04-05] MEDS: REMOVE LIDOCAINE PATCH REMOVE (19:54)
[2025-04-05] MEDS: KCL 20 MEQ PO (21:17)
[2025-04-05] MEDS: LIPITOR 40 MG PO (21:18)
--- NOTE | 2025-04-06 03:16 | PTCARENOTE ---
Assumed care on pt at 1900, aaox3, OOB to chair at change of shift, voicing no c/o pain or any other discomfort. SR on tele monitor, HR 70's. Mid sternum incision well approximated and surgical glue intact, sternal precautions maintained. Ambulating
self in room, steady gait. Call light within reach, POC ongoing.
[2025-04-06 04:11] VITALS: BP 119/71
[2025-04-06] MEDS: TYLENOL 975 MG PO (04:27)
--- NOTE | 2025-04-06 04:29 | W.PN.CT ---
Today's Communication / Plan
-
Plan:
-No major issues overnight. Hemodynamically and neurologically intact
-Completed Amiodarone gtt for postop PAC's overnight. Currently off all drips
-NSR @ 70 bpm
-Monitor hyponatremia, 129-> 131. Fluid restriction, diuresis as BP permits
-Cont. current meds -current meds (ASA, Plavix, Lipitor, Lopressor 25 bid, Amio, Gabapentin, Mucinex, Flomax, Cialis, Protonix)
-Encourage use of IS
-OOB into chair
-Temporary wires d/c'd yesterday 04/04
-Home today
Assessment / Plan
-
- mv-CAD - s/p CABG x4 (In situ FRAZIER to LAD, Ao to RSVG to diagonal, Ao to RSVG to L PLB and OM 2 in sequence); Endarterectomy of second obtuse marginal coronary artery; Left atrial appendage ligation with 40 mm AtriClip; Modified left atrial maze
procedure with AtriCure Encompass device by Dr. Quinteros on 04/01/25, pod #5
- introp EDU: normal LV with moderate hypertrophy and no RWMA, EF 60 to 65%. There was normal RV function and mild MR with trace to mild TR. At the conclusion of the case, there were no significant changes with EF at baseline and no new RWMA or
valvular abnormalities.
- Paroxysmal A-fib diagnosed 01/09, s/p cardioversion
- Hypertension
- Hyperlipidemia
- Tobacco use, quit 03/17/25
- Class 1 obesity, BMI 31
- ADD
- R inguinal hernia repair
- Mild sleep apnea (doesn't have home cpap yet)
- PTSD
- Hx lumbar discitis 2021
- Hx spinal infection 02/2022
- Acute postop blood loss anemia - no active bleed, no transfusion
- Acute postop atelectasis
- Acute postop pulmonary insufficiency/ hypoxia
- Acute postop hypovolemia with subsequent hypervolemia
- Suspected acute postop pericarditis/+ rub
- Acute postop brief a-fib on 04/02- tx with Amio bolus
- Acute postop hyponatremia
- Acute postop hypokalemia
Discussed patient care with: Cardiology, Nursing, Respiratory Therapy, Pharmacy and Care Team
Subjective
-
Date of Service: April 06, 2025
Pt c/o mild incisional pain, otherwise feels well. Ambulating halls without difficulty
Objective Data
-
PT 17.7 Sec (11.4-14.6) H 04/01/25 14:07
INR 1.45 04/01/25 14:07
APTT 30.3 Sec (23.4-35.0) 04/01/25 14:07
Vital Signs
Vital Signs
Temp Pulse Resp BP Pulse Ox
98.6 F 65 18 119/71 96
04/06/25 04:22 04/06/25 04:11 04/06/25 04:22 04/06/25 04:11 04/06/25 04:22
CT Intake/Output/Weight
04/05/25 04/05/25 04/06/25
06:59 18:59 06:59
Intake Total 377.1 / 377.1 630 / 630
Output Total 1450 / 2250 550 / 550
Balance -1072.9 / -1872.9 80 / 80
SaO2: 96 (RA)
Physical Exam
-
General: Awake, Oriented and AOx3
Cardiovascular: Regular rate & rhythm, No Murmurs and No Gallop
Respiratory: Decreased Breath Sounds (at bases, otherwise clear)
Incision: Clean, Dry, Intact and Dressing Intact
Extremities: Other (+trace edema)
Data Reviewed
-
Lab Results: Results Reviewed
Medications: Active Meds Reviewed
Chest X-Ray: Report Reviewed and Image Reviewed
ECG: Report Reviewed and Image Reviewed
[2025-04-06 04:30] VITALS: BMI 32.4
[2025-04-06 04:54] LABS: Hematocrit 24.5 % (39.0-52.0); Hemoglobin 8.6 g/dL (13.0-18.0); Mean Corp Hgb Conc. 35.1 g/dL (33.0-37.0); Mean Corpuscular Volume 94.6 fL (80.0-94.0); Platelet Count 211 10^3/uL (130-400); Red Cell Dist. Width 13.0 % (11.5-14.5)
[2025-04-06 05:19] LABS: Blood Urea Nitrogen 19 mg/dl (9-20); Calcium 8.4 mg/dl (8.4-10.2); Carbon Dioxide 27 mmol/L (22-30); Chloride 98 mmol/L (98-107); Estimated Creatinine Clearance 94 ml/min; Glucose 98 mg/dl (70-99); Magnesium 1.9 mg/dl (1.6-2.3); Potassium 4.0 mmol/L (3.5-5.1); Sodium 131 mmol/L (135-145); eGFR > 60.00
[2025-04-06 06:58] VITALS: BP 98/80
[2025-04-06 07:57] VITALS: BP 125/42
[2025-04-06] MEDS: MUCINEX 600 MG PO (08:52)
[2025-04-06] MEDS: PROTONIX 40 MG PO (08:52)
[2025-04-06] MEDS: NEURONTIN 100 MG PO (08:52)
[2025-04-06] MEDS: LASIX 40 MG IV (08:52)
[2025-04-06] MEDS: MAGNESIUM OXIDE 400 MG PO (08:52)
[2025-04-06] MEDS: NON-FORMULARY ITEM 5 MG PO (08:53)
[2025-04-06] MEDS: PLAVIX 75 MG PO (08:53)
[2025-04-06] MEDS: LIDOCAINE 4% PATCH TOPICAL (08:53)
[2025-04-06] MEDS: SENOKOT 8.6 MG PO (08:53)
[2025-04-06] MEDS: FLOMAX 0.4 MG PO (08:53)
[2025-04-06] MEDS: PACERONE 200 MG PO (08:53)
[2025-04-06] MEDS: LOPRESSOR 25 MG PO (08:53)
[2025-04-06] MEDS: LOW STRENGTH ASPIRIN 81 MG PO (08:53)
--- NOTE | 2025-04-06 09:12 | W.DCSUMMARY ---
Discharge Summary
Discharge Data
Date of Admission: 04/01/25
Date of Discharge: 04/06/25
Total time spent discharging patient (in min): 55
-
Pending Results: No
Hospital Course
Primary care physician:
Dr. rosen
Outpatient talent development consultant:
Dr. Nancy Hernandez
Inpatient consultants:
DCA, rubber mold maker
Procedures:
1. Coronary artery bypass grafting x 4 (In situ FRAZIER to LAD, Ao to RSVG to diagonal, Ao to RSVG to L PLB and OM 2 in sequence), Left atrial appendage ligation with 40 mm AtriClip
Primary Diagnosis:
1. Multivessel Coronary Artery Disease
Secondary Diagnoses:
- Paroxysmal A-fib diagnosed 01/09, s/p cardioversion
- Hypertension
- Hyperlipidemia
- Tobacco use, quit 03/17/25
- Class 1 obesity, BMI 31
- ADD
- R inguinal hernia repair
- Mild sleep apnea (doesn't have home cpap yet)
- PTSD
- Hx lumbar discitis 2021
- Hx spinal infection 02/2022
- Acute postop blood loss anemia - no active bleed, no transfusion
- Acute postop atelectasis
- Acute postop pulmonary insufficiency/ hypoxia
- Acute postop hypovolemia with subsequent hypervolemia
- Suspected acute postop pericarditis/+ rub
- Acute postop brief a-fib on 04/02- tx with Amio bolus
- Acute postop hyponatremia
- Acute postop hypokalemia
HPI: 66-year-old male presented electively for a CABG with Dr. Quinteros.
Hospital course: Patient was electively admitted on 04/[address] Quinteros. Postoperatively he returned to the CVICU on Levophed, Precedex, and insulin infusions. Patient was weaned off Precedex and was extubated by 1720. On 04/02
postoperative day 1, Levophed was weaned off overnight. Patient was given 5% albumins and diuresed with 40 mg of IV Lasix. Pleural chest tubes were removed. On 04/03 postoperative day 2, patient was again diuresed with IV Lasix. He had a brief
episode of atrial fibrillation overnight and was started on an amiodarone bolus. Patient's Dean catheter was removed later that day. Due to the atrial fibrillation epicardial wires and chest tubes remain for an additional day. On 04/04
postoperative day 3 patient had no further episodes of atrial fibrillation and epicardial wires and chest tubes were removed. He was weaned down to room air after twice daily dosing of Lasix. On 04/05 postoperative day 4, Cordis was removed and
twice daily Lasix was continued. On 04/06 postoperative day 5 patient was deemed stable for discharge home. He was discharged with oral Lasix with repeat blood work in 1 week and oral amiodarone.
Home medication changes:
see below
Discharge Plan
-
Patient Disposition: Home (Routine Discharge)
Discharge Diagnosis/Procedures: CABG x 4, MAZE, left atrial appendage clip (04/01/25)
Condition: Good
Diet: Low Cholesterol, Low Sodium and Restrict fluids to 64 oz
Activity: No strenuous activity
Driving Restrictions: Not until seen by your Dr
Bathing Restrictions: OK to Shower
Blood Work: BMP and Magnesium in one week
Other Services: Cardiac Rehab
Specialty Instructions: Weigh Daily- Call MD for wt gain/loss 3 lbs overnight/5 lbs in 1 week
Activity Restrictions/Additional Instructions:
Please call to make appointments for Phase II Cardiac Rehab:
[facility] [address]-([facility]) ~ 8 min from home
[phone]
ACTIVITY:
-No strenuous activity: no heavy lifting, pushing, pulling anything over 15 pounds for one month
-continue to use stairs as tolerated
DRIVING RESTRICTIONS:
-No driving for one month or until approved by your surgeon
WOUND CARE:
-Shower daily. Use soap & water.
-No lotions, creams or powders on incision area.
DIET:
-continue a low fat/low cholesterol diet.
-IF you are diabetic, continue carb controlled diet.
CARDIAC REHAB:
-Please make appointment to start in 5-6 weeks with your local hospital program. (See Cardiac Rehabilitation Discharge Booklet).
SPECIALTY INSTRUCTIONS:
-Weigh yourself daily. Call your physician for any weight gain/loss of 3 lbs overnight or 5 lbs in one week.
-REPORT any clicking noise or uneven appearance of your sternum to your surgeon immediately.
-If you smoke, you are instructed to quit. The [place] smoking hotline phone number is [phone]
Referrals:
CT Transitional Care Nurse [Outside]
Referral Note:
The Cardiothoracic Transitional Care Nurse will call you to set up a visit in 1-2 days.
Washington Rosen DO [Family Provider, Internal Medicine]
Melanie Yang PA-C [Specified Professional Personl, Cardiology] - 05/12/25 10:00 am
Shavonne Quinteros MD [Active, Cardiac Surgery] - 05/07/25 10:30 am
Additional Discharge Medication Instructions: for LASIX: Take twice a day for 3 days and then 40mg daily for a total of one week
for Amiodarone: Take 200mg TWICE A DAY for 14 days (2 weeks) and then 200mg DAILY until seen by cardiology
Prescriptions:
New
cyclobenzaprine 10 mg Tablet
5 mg PO Q8HPRN PRN (Reason: muscle spasm) Qty: 15 0RF
atorvastatin 40 mg Tablet
40 mg PO HS Qty: 60 0RF
acetaminophen 325 mg Tablet
650 mg PO Q4HPRN PRN (Reason: mild pain,headache,temp >101F ) Qty: 0 0RF
clopidogrel 75 mg Tablet
75 mg PO DAILY Qty: 30 0RF
pantoprazole 40 mg Tablet,Delayed Release (Dr/Ec)
40 mg PO DAILY Qty: 30 0RF
oxycodone 5 mg Tablet
2.5 mg PO Q4HPRN PRN (Reason: severe pain) Qty: 7 0RF
metoprolol tartrate 25 mg Tablet
25 mg PO Q12 Qty: 90 0RF
furosemide [Lasix] 40 mg tablet
40 mg PO BID Qty: 20 0RF
Rx Instructions:
Take twice a day for 3 days and then 40mg daily for a total of one week
potassium chloride [Klor-Con M20] 20 mEq tablet,ER particles/crystals
20 meq PO DAILY Qty: 7 0RF
amiodarone 200 mg tablet
200 mg PO BID Qty: 90 0RF
Rx Instructions:
take 200mg twice a day for 2 weeks and then 200mg daily
Continued
tamsulosin [Flomax] 0.4 mg Capsule
0.4 mg PO HS
vitamin E (dl, acetate) 450 mg (1,000 unit) Capsule
450 mg PO DAILY
vitamin B complex Tablet
1 tab PO DAILY
tadalafil [Cialis] 5 mg Tablet
5 mg PO DAILY
zinc sulfate 25 mg zinc (110 mg) Tablet
50 mg PO DAILY
aspirin 81 mg Tablet
81 mg PO DAILY
Nicotine Transdermal
21 mg topical DAILY
cholecalciferol (vitamin D3) [Vitamin D3] 50 mcg (2,000 unit) Tablet
100 mcg PO DAILY
Discontinued
garlic 300 mg Capsule
300 mg PO DAILY
coenzyme Q10 [CoQ-10] 100 mg Capsule
100 mg PO DAILY
potassium citrate 99 mg Capsule
99 mg PO DAILY
atorvastatin 20 mg tablet
20 mg PO QPM
vitamin K2 180 mcg Capsule
180 mcg PO DAILY
Discharge Orders:
Discharge Patient (As Directed); Ordered 04/06/25
Ordered By: Tawanna Carlson
Care Plan Goals
Care Plan Goals:
Problem: Readiness for enhanced knowledge related to diagnosis and treatment plan
Goal: Understand your diagnosis and treatment plan needs, including medications if applicable.
Instructions: Know your diagnosis, underlying causes and treatment plan options, including medications if applicable. Consult with your health care team to learn about your diagnosis and treatment plan, including medications if applicable.
Discharge Date and Time
Discharge Date/Time: 04/06/25 11:09
Print Language: JAPANESE
--- NOTE | 2025-04-06 10:52 | PTCARENOTE ---
Patient discharged to home. He did shower before leaving. All instructions reviewed, they verbalized understanding. All dressings removed. Chest tube sites scabbed and healing, sternal incision approximated and glued. Right cordis site open to air.
Right inner thigh glued and approximated. Institutions and prescriptions reviewed with patient and spouse, they verbalized understanding. Patient escorted to main lobby in a wheelchair
== END 2025-04-06 11:09 | disposition home or self-care (01) | DRG 317 ==
LOC: IVU 05:16
PROVIDERS: Anesthesiology; Nurse Practitioner; Physician Assistant Medical; ADMITTING PHYSICIAN Student in an Organized Health Care Education/Training Program; CONSULT PHYSICIAN Internal Medicine; FAMILY PHYSICIAN Internal Medicine; OTHER PHYSICIAN Internal Medicine Cardiovascular Disease
PROC: 02580ZZ Destruction of Conduction Mechanism, Open Approach (ICD-10-PCS; 2025-04-01)
PROC: 02C00ZZ Extirpation of Matter from Coronary Artery, One Artery, Open Approach (ICD-10-PCS; 2025-04-01)
PROC: 021209W Bypass Coronary Artery, Three Arteries from Aorta with Autologous Venous Tissue, Open Approach (ICD-10-PCS; 2025-04-01)
PROC: 02100Z9 Bypass Coronary Artery, One Artery from Left Internal Mammary, Open Approach (ICD-10-PCS; 2025-04-01)
PROC: 5A1221Z Performance of Cardiac Output, Continuous (ICD-10-PCS; 2025-04-01)
PROC: B24BZZ4 Ultrasonography of Heart with Aorta, Transesophageal (ICD-10-PCS; 2025-04-01)
PROC: 06BP4ZZ Excision of Right Saphenous Vein, Percutaneous Endoscopic Approach (ICD-10-PCS; 2025-04-01)
PROC: 02L70CK Occlusion of Left Atrial Appendage with Extraluminal Device, Open Approach (ICD-10-PCS; 2025-04-01)
DX: I25.118 Atherosclerotic heart disease of native coronary artery with other forms of angina pectoris (principal); J95.1 Acute pulmonary insufficiency following thoracic surgery; D62 Acute posthemorrhagic anemia; J98.11 Atelectasis; I30.8 Other forms of acute pericarditis; E87.1 Hypo-osmolality and hyponatremia; I48.0 Paroxysmal atrial fibrillation; R09.02 Hypoxemia; E86.1 Hypovolemia; E87.70 Fluid overload, unspecified; E87.6 Hypokalemia; I49.1 Atrial premature depolarization; I10 Essential (primary) hypertension; E78.00 Pure hypercholesterolemia, unspecified; E66.811 Obesity, class 1; G47.30 Sleep apnea, unspecified; I35.0 Nonrheumatic aortic (valve) stenosis; F43.10 Post-traumatic stress disorder, unspecified; N40.0 Benign prostatic hyperplasia without lower urinary tract symptoms; Z68.31 Body mass index [BMI] 31.0-31.9, adult; Z87.891 Personal history of nicotine dependence
CPT/HCPCS: 33259; 36415; 71045; 71046; 80048; 80053; 81003; 81015; 82248; 82330; 82565; 82805; 82810; 82947; 82962; 83036; 83735; 84132; 84302; 84520; 85014; 85018; 85025; 85027; 85049; 85610; 85730; 86850; 86900; 86901; 86920; 87070; 88304; 88311; 93005; 93312; 93320; 93325; 93880; 94002; 94640; 99406; J0282; J2916; P9045